=== PATIENT | female | born 1960 | race Caucasian/White ===

== ENCOUNTER 2023-08-24 20:21 | Inpatient (IN) | payer OTHER ==
[2023-08-24] MEDS ORDERED: FUROSEMIDE 20 MG/ 2ML VIAL ONE ×2 (21:29→22:33)
[2023-08-24 21:30] LABS: Absolute Basophils 0.1 K/uL (0-0.5); Absolute Eosinophils 0.1 K/uL (0-0.5); Absolute Lymphocytes (CBC) 2.5 K/uL (0.7-4.9); Absolute Monocytes 0.9 K/uL (0.1-1.3); Absolute Neutrophil 9.2 K/uL (1.8-8.0); Basophils % 0.6 % (0-1.3); Eosinophils % 0.8 % (0-4.4); Hematocrit 45.1 % (36.0-45.0); Hemoglobin 13.7 g/dL (12.0-15.0); Lymphocytes % 19.4 % (15.3-44.8); MCH 25.2 pg (27.0-35.0); MCHC 30.4 g/dL (32.0-36.0); MCV 83.1 fL (80-100); MPV 9.1 fL (7.6-11.3); Monocytes % 7.1 % (3.3-12.3); Neutrophils % 72.1 % (41.7-73.7); Nucleated RBC Absolute Count 0.1 (0-0); Nucleated Red Blood Cells % 0.6 % (0-0); Platelets 110 thou/uL (152-406); RBC Red Blood Cell Count 5.43 M/uL (3.86-4.86); Red Cell Distribution Width 21.2 % (12.1-15.2)
[2023-08-24 21:38] LABS: PT Prothrombin Time 12.4 SECONDS (9.5-12.5); Protime INR 1.13
[2023-08-24 21:58] LABS: Blood Morphology Comment NOT SEEN (NOT SEEN); Platelet Estimate DECR; White Blood Cell Scan OK (OK)
[2023-08-24 22:21] LABS: Albumin 3.6 g/dL (3.4-5.0); Albumin/Globulin Ratio 0.7 (1.1-1.8); Anion Gap 13.3 mEq/L (5.0-15.0); Bilirubin Direct 0.2 mg/dL (0-0.2); Bilirubin Indirect, Calculated 0.4 mg/dL (0.2-0.8); Bilirubin Total 0.6 mg/dL (0.2-1.0); Globulin 5.2 g/dL (2.3-3.5); Magnesium 2.8 mg/dL (1.6-2.4); Potassium 5.3 mEq/L (3.5-5.1); Protein, Total 8.8 g/dL (6.4-8.2); Troponin High Sensitivity 47.5 pg/mL (<58.9)
--- NOTE | 2023-08-24 22:39 | RAD REPORT ---
EXAM DESCRIPTION: US - Extrem Venous W Compress Yobani - 08/24/2023 10:13 pm CLINICAL HISTORY: SWELLING COMPARISON: No comparisons TECHNIQUE: Real-time sonographic evaluation of the lower extremity deep venous systems was performed using color Doppler, grayscale, and compression. FINDINGS: Bilateral lower extremities. Normal compressibility, flow augmentation, phasic flow and spontaneous flow is identified in both the left and right lower extremity deep venous systems. No intraluminal filling defects seen. Suboptimal visualization of many of the veins due to the degree of swelling and body habitus. IMPRESSION: No DVT in either lower extremity.
--- NOTE | 2023-08-24 22:46 | RAD REPORT ---
EXAM DESCRIPTION: RAD - Chest Single View - 08/24/2023 10:39 pm CLINICAL HISTORY: SOB COMPARISON: No comparisons FINDINGS: Lines: None. Lungs: Basilar airspace disease, right greater than left. Pleural: Bilateral pleural effusions which are small. Cardiac: Mild cardiomegaly. Mediastinum: Within normal limits. Bones: No acute fractures. Other: None IMPRESSION: Basilar airspace disease with small pleural effusions could reflect the combination of e skyler and/or pneumonia.
[2023-08-24 23:00] LABS: Blood O2 Saturation 12.7 % (92-98.5)
[2023-08-24 23:01] LABS: Arterial Blood Carboxyhemoglob 4.3 % (0-1.5); Blood Gas Oxyhemoglobin 11.9 % (94-97); Blood Gas RHB 14.7 %
[2023-08-24 23:29] LABS: Specific Gravity 1.025 (1.005-1.030); Sqamous Epithelial <5 /HPF (None Seen); Urine Bacteria None Seen /HPF (<20); Urine Bilirubin NEGATIVE (Negative); Urine Blood Negative (Negative); Urine Clarity Clear (Clear); Urine Color Yellow (Yellow); Urine Culture Reflex Order NOT NEEDED; Urine Glucose NEGATIVE (Negative); Urine Ketones NEGATIVE (Negative); Urine Micro Reflex YN NO BILL MICROSCOPIC; Urine Mucus Slight /HPF (None Seen); Urine Nitrite NEGATIVE (Negative); Urine Protein 1+ (Negative); Urine RBC <5 /HPF (None Seen); Urine Urobilinogen 1+ (Normal); Urine WBC <5 /HPF (<5); Urine pH 5.5 (5.0-7.0)
[2023-08-24] MEDS ORDERED: INSULIN REGULAR (HUMAN) 100 UNIT/ML ONE (23:40)
[2023-08-24] MEDS ORDERED: AZITHROMYCIN 500 MG INJ IVPB ONE (23:41)
[2023-08-24] MEDS ORDERED: NA CHLORIDE 0.9% 250 ML ONE (23:41)
[2023-08-24] MEDS ORDERED: SOD POLYSTYREN SUL 15 GM/60 ML UCUP ONE (23:41)
[2023-08-24] MEDS ORDERED: CEFTRIAXONE 1000 MG/VIAL ONE (23:41)
[2023-08-24] MEDS ORDERED: D10W 250 ML IV ONE (23:42)
[2023-08-24] MEDS ORDERED: IPRATROPIUM BROM 0.5MG/2.5ML ONE (23:52)
[2023-08-24] MEDS ORDERED: ALBUTEROL 2.5 MG/3 ML NEB SOL ONE (23:52)
--- NOTE | 2023-08-25 00:17 | EDPHYS ---
Physician Documentation [facility] Name: Catina Antony Age: 63 yrs Sex: Female : 1960 Arrival Date: 08/24/2023 Time: 20:21 Bed 19 Private MD: ED Physician Sanchez Desai HPI: 08/23 20:55 This 63 yrs old Female presents to ER via Wheelchair with complaints of Shortness Of cp Breath, pt states her body is retaining fluid. 20:55 The patient has shortness of breath at rest. Onset: The symptoms/episode began/occurred cp gradually. Duration: The symptoms are continuous, and are steadily getting worse. Associated signs and symptoms: Pertinent positives: edema, Pertinent negatives: chest pain, diaphoresis, fever. Severity of symptoms: in the emergency department the symptoms are unchanged despite home interventions. The patient has experienced similar episodes in the past, chronically. Historical: - Allergies: 20:39 No Known Allergies; jb4 - PMHx: 20:39 DM; Edema to JOYCE lower extremities; heart problem; jb4 - PSHx: 20:39 Right femur; jb4 - Immunization history:: Adult Immunizations up to date. - Social history:: Smoking status: Patient/guardian denies using tobacco, but has a distant history of tobacco abuse. ROS: 21:00 Constitutional: Negative for body aches, chills, fever, poor PO intake, cp 21:00 Eyes: Negative for injury, pain, redness, and discharge, cp 21:00 ENT: Negative for drainage from ear(s), ear pain, sore throat, difficulty swallowing, difficulty handling secretions, 21:00 Cardiovascular: Positive for edema, Negative for chest pain, 21:00 Respiratory: Positive for shortness of breath, at rest. 21:00 Abdomen/GI: Negative for abdominal pain, vomiting, diarrhea, constipation, 21:00 Neuro: Negative for altered mental status, dizziness, headache, syncope, weakness, 21:00 All other systems are negative, Exam: 21:05 Constitutional: The patient appears in no acute distress, alert, awake, cp non-diaphoretic, non-toxic, well developed, well nourished, obese, uncomfortable, 21:05 Head/Face: Normocephalic, atraumatic. cp 21:05 Eyes: Periorbital structures: appear normal, Conjunctiva: normal, no exudate, no injection, Sclera: no appreciated abnormality, Lids and lashes: appear normal, bilaterally, 21:05 ENT: External ear(s): are unremarkable, Nose: is normal, Mouth: Lips: moist, Oral mucosa: pink and intact, moist, Posterior pharynx: Airway: no evidence of obstruction, patent, 21:05 Neck: ROM/movement: is normal, is supple, without pain, no range of motions limitations, no meningismus, no nuchal rigidity, 21:05 Chest/axilla: Inspection: normal, 21:05 Cardiovascular: Rate: tachycardic, Rhythm: regular, Edema: pedal edema, that is marked, ankle edema, that is marked, JVD: is not appreciated, 21:05 Respiratory: mild respiratory distress is noted, Respirations: shallow respirations, that is moderate, Breath sounds: decreased breath sounds, that are moderate, throughout, stridor, is not appreciated, wheezing: is not appreciated, 21:05 Abdomen/GI: Inspection: obese Palpation: abdomen is soft and non-tender, in all quadrants, 21:05 Back: pain, is absent, ROM is normal, 21:05 Skin: mild diffuse erythema of lower extremities. 21:05 Neuro: Orientation: to person, place \T\ time. Mentation: is normal, Motor: moves all fours, no focal deficits, Sensation: no obvious gross deficits, 22:17 ECG was reviewed by the Attending Physician. cp Vital Signs: 20:35 BP 128 / 58; Pulse 101; Resp 24; Temp 97.8; Pulse Ox 76% on R/A; Weight 104.42 kg (M); jb4 Height 5 ft. 4 in. ; 21:39 BP 94 / 57; Pulse 76; Pulse Ox 100% on bipap; tm6 22:16 BP 131 / 73; Pulse 94; Resp 25; Pulse Ox 100% on bipap; tm6 23:48 BP 134 / 57; Pulse 92; Resp 17; Pulse Ox 100% on bipap; Pain 0/10; tm6 03 01:49 BP 113 / 55; Pulse 93; Pulse Ox 95% on 3 lpm NC; Pain 0/10; tm6 08/23 20:35 Body Mass Index 39.51 (104.42 kg, 162.56 cm) jb4 23:48 Pain Scale: Adult tm6 08/24 01:49 Pain Scale: Adult tm6 MDM: 08/23 20:43 Patient medically screened. 21:00 Differential diagnosis: CHF exacerbation, Chronic Obstructive Pulmonary Disease cp Myocardial Infarction pneumonia, pulmonary edema, Pulmonary Embolism Sepsis Unstable Angina. 08/24 00:30 Data reviewed: vital signs, nurses notes, lab test result(s), EKG, radiologic studies, cp plain films, ultrasound, and as a result, I will admit patient. 00:30 I considered the following discharge prescriptions or medication management in the emergency department Medications were administered in the Emergency Department. See MAR. Independent interpretation of the following test(s) in the Emergency Department EKG: See my EKG interpretation above. Care significantly affected by the following chronic conditions: Congestive Heart Failure, Obesity. Counseling: I had a detailed discussion with the patient and/or guardian regarding the historical points, exam findings, and any diagnostic results supporting the discharge/admit diagnosis, lab results, radiology results, the need for further work-up and treatment in the hospital. Response to treatment: the patient's symptoms have markedly improved after treatment. 08/23 20:47 Order name: Basic Metabolic Panel; Complete Time: 22:21 08/23 22:22 Interpretation: Normal except: NA 135; K 5.3; GLUC 174; BUN 41; CRE 1.38; GFR 43. 08/23 20:47 Order name: CBC with Diff; Complete Time: 22:03 08/23 22:03 Interpretation: Normal except: WBC 12.70; RBC 5.43; HCT 45.1; MCH 25.2; MCHC 30.4; PLT cp 110; RDW 21.2; NEUT A 9.2. 08/23 20:47 Order name: LFT's; Complete Time: 22:21 / 22:22 Interpretation: Normal except: ALK 131; TP 8.8; GLOB 5.2; A/G 0.7. 08/23 20:47 Order name: Magnesium; Complete Time: 22:21 08/23 20:47 Order name: NT PRO-BNP; Complete Time: 22:21 08/23 20:47 Order name: PT-INR; Complete Time: 22:03 08/23 20:47 Order name: Troponin HS; Complete Time: 22:21 08/23 20:47 Order name: ABG; Complete Time: 23:39 cp 08/23 20:47 Order name: Lactate w/ 2H reflex if indic.; Complete Time: 22:03 cp 08/23 20:47 Order name: Blood Culture Adult (2) cp 08/23 20:47 Order name: Urinalysis W/Microscopic; Complete Time: 23:39 cp 08/23 20:47 Order name: Influenza Screen (a \T\ B); Complete Time: 22:03 cp 08/23 20:47 Order name: COVID-19 SARS RT PCR; Complete Time: 22:03 cp 08/23 21:37 Order name: CBC Smear Scan; Complete Time: 22:03 EDMS 08/24 01:36 Order name: Basic Metabolic Panel EDMS 08/24 01:36 Order name: Basic Metabolic Panel EDMS 08/24 01:36 Order name: CBC with Automated Diff EDMS 08/24 01:36 Order name: CBC with Automated Diff EDMS 08/24 01:36 Order name: Lipid Profile EDMS 08/24 01:36 Order name: Lipid Profile EDMS 08/24 01:36 Order name: Magnesium EDMS 08/24 01:36 Order name: Magnesium EDMS / 01:36 Order name: Phosphorus EDMS / 01:36 Order name: Phosphorus EDMS / 01:36 Order name: Troponin High Sensitivity EDMS / 01:36 Order name: Troponin High Sensitivity EDMS / 01:36 Order name: Troponin High Sensitivity EDMS / 01:36 Order name: Troponin High Sensitivity EDMS / 01:36 Order name: Troponin High Sensitivity EDMS 08/24 01:36 Order name: Troponin High Sensitivity EDMS / 01:36 Order name: Troponin High Sensitivity EDMS 08/24 01:36 Order name: Troponin High Sensitivity EDMS / 01:53 Order name: Lactate Sepsis 2 HR Follow-up EDMS 08/24 02:27 Order name: Glucose, Ancillary Testing EDMS 08/23 20:47 Order name: XRAY Chest (1 view); Complete Time: 22:57 cp 08/23 20:47 Order name: US Extremity Venous W Compression Joyce; Complete Time: 22:57 cp 08/24 01:36 Order name: Echo with Doppler EDMS 03/03 01:36 Order name: Echo with Doppler [facility] 08/23 20:47 Order name: EKG; Complete Time: 20:48 cp 08/24 01:36 Order name: Physical Therapy Consult [facility] 08/23 20:47 Order name: Cardiac monitoring; Complete Time: 22:16 cp 08/23 20:47 Order name: EKG - Nurse/Tech; Complete Time: 22:16 cp 08/23 20:47 Order name: IV Saline Lock; Complete Time: 21:19 cp 08/23 20:47 Order name: Labs collected and sent; Complete Time: 21:19 cp 08/23 20:47 Order name: O2 Per Protocol; Complete Time: 21:27 cp 08/23 20:47 Order name: O2 Sat Monitoring; Complete Time: 21:27 cp EC/02 22:17 Rate is 90 beats/min. Rhythm is regular. IL interval is normal. QRS interval is normal. cp QT interval is normal. T waves are Inverted in lead aVR. Interpreted by me. Reviewed by me. Administered Medications: 22:23 Not Given (Physician Discretion): [id number] mg IVP once; give over 2 minutes 23:02 Drug: Furosemide IVP 40 mg IVP once; give over 2 minutes Route: IVP; Site: left 6 antecubital; 23:53 Drug: D10 in Water IVP 250 ml IVP once Route: IVP; Site: left antecubital; tm6 23:53 Drug: Insulin Regular Human IVP 10 units IVP once {Co-Signature: pf1 (Shayla Hamilton tm6 RN).} Route: IVP; Site: left antecubital; 08/24 00:22 Drug: Kayexalate PO 30 grams PO once Route: PO; tm6 00:22 Drug: Rocephin IV 1 grams IV at calculated rate once; Given slow IV push per pharmacy tm6 instructions Route: IV; Rate: calculated rate; Site: left antecubital; 00:22 Drug: Zithromax IVPB 500 mg IVPB once over 1 hrs; mix in 250 mL NS Route: IVPB; Infused tm6 Over: 1 hrs; Site: left antecubital; 01:08 Drug: DuoNeb Nebulize (2.5 mg - 0.5 mg) 3 ml Nebulizer once Route: Nebulizer; tm6 Disposition Summary: 08/25/23 00:16 Hospitalization Ordered Notes: Hospitalization Status: Inpatient Admission cp Provider: Sylvester Duffy cp Location: Telemetry/MedSurg (Inpatient) cp Condition: Stable cp Problem: new cp Symptoms: have improved cp Bed/Room Type: Standard cp Room Assignment: 218(08/25/23 01:35) cg Diagnosis - Acute respiratory failure with hypoxia cp - Unspecified combined systolic (congestive) and diastolic (congestive) heart failure cp Forms: - Medication Reconciliation Form cp - SBAR form cp - Leadership Thank You Letter cp Addendum: 08/27/2023 07:57 I was immediately available for consultation during this patient's visit. I did not e c2 personally see the patient or discuss the patient with the MIKIE. . Signatures: Dispatcher [employer] EDMS Reza Jordan PA PA cp Garcia, Cindy, MAYCO RN cg Kyle Santacruz RN RN jb4 Sanchez Desai MD MD ec2 Nubia Blackburn RN RN tm6 Shayla Hamilton RN pf1 Corrections: (The following items were deleted from the chart) 08/24 01:35 00:16 cp cg
--- NOTE | 2023-08-25 00:17 | ER ---
Nurse's Notes [facility] Name: Catina Antony Age: 63 yrs Sex: Female : 1960 Arrival Date: 08/24/2023 Time: 20:21 Bed 19 Private MD: Diagnosis: Acute respiratory failure with hypoxia;Unspecified combined systolic (congestive) and diastolic (congestive) heart failure Presentation: 08/23 20:35 Chief complaint: Patient states: I started swelling 3 weeks ago and started having jb4 shortness for 1 week. I feel like I have been stuck in my chair. Pt noted to be 76% on RA. placed on 6L NC. Coronavirus screen: At this time, the client does not indicate any symptoms associated with coronavirus-19. Ebola Screen: No symptoms or risks identified at this time. Initial Sepsis Screen: Does the patient meet any 2 criteria? No. Patient's initial sepsis screen is negative. Does the patient have a suspected source of infection? No. Patient's initial sepsis screen is negative. Risk Assessment: Do you want to hurt yourself or someone else? Patient reports no desire to harm self or others. Onset of symptoms was August 03, 2023. Transition of care: patient was not received from another setting of care. 20:35 Method Of Arrival: Wheelchair jb4 20:35 Acuity: ANA ROSA 2 jb4 Triage Assessment: 08/24 00:00 General: Appears distressed. Respiratory: Reports shortness of breath at rest Onset: tm6 The symptoms/episode began/occurred at an unknown time. the patient has severe shortness of breath. Historical: - Allergies: 08/23 20:39 No Known Allergies; jb4 - PMHx: 20:39 DM; Edema to JOYCE lower extremities; heart problem; jb4 - PSHx: 20:39 Right femur; jb4 - Immunization history:: Adult Immunizations up to date. - Social history:: Smoking status: Patient/guardian denies using tobacco, but has a distant history of tobacco abuse. Screenin:41 [facility] ED Fall Risk Assessment (Adult) History of falling in the last 3 months, tm6 including since admission No falls in past 3 months (0 pts) Confusion or Disorientation No (0 pts) Intoxicated or Sedated No (0 pts) Impaired Gait Yes (1 pt) Mobility Assist Device Used Yes (1 pt) Altered Elimination No (0 pt) Score/Fall Risk Level 0 - 2 = Low Risk Oriented to surroundings, Maintained a safe environment. Abuse screen: Denies threats or abuse. Denies injuries from another. Nutritional screening: No deficits noted. Tuberculosis screening: No symptoms or risk factors identified. Assessment: 21:39 General: Appears distressed, Behavior is anxious. tm6 21:39 Pain: Denies pain. Neuro: Level of Consciousness is awake, alert, obeys commands, tm6 Oriented to person, place, time, situation. Cardiovascular: +3 edema in bilateral lower extremeties. Respiratory: Airway is patent Respiratory effort is labored, Breath sounds are diminished. GI: Abdomen is round non-distended. : No signs and/or symptoms were reported regarding the genitourinary system. EENT: No signs and/or symptoms were reported regarding the EENT system. Derm: No signs and/or symptoms reported regarding the dermatologic system. Musculoskeletal: No signs and/or symptoms reported regarding the musculoskeletal system. 22:17 Cardiovascular: Rhythm is sinus rhythm. tm6 22:17 Reassessment: No changes from previously documented assessment. tm6 23:49 Reassessment: Patient and/or family updated on plan of care and expected duration. Pain tm6 level reassessed. General: Behavior is calm, cooperative. 08/24 01:55 Reassessment: report attempted. tm6 Vital Signs: 08/23 20:35 BP 128 / 58; Pulse 101; Resp 24; Temp 97.8; Pulse Ox 76% on R/A; Weight 104.42 kg (M); jb4 Height 5 ft. 4 in. ; 21:39 BP 94 / 57; Pulse 76; Pulse Ox 100% on bipap; tm6 22:16 BP 131 / 73; Pulse 94; Resp 25; Pulse Ox 100% on bipap; tm6 23:48 BP 134 / 57; Pulse 92; Resp 17; Pulse Ox 100% on bipap; Pain 0/10; tm6 08/24 01:49 BP 113 / 55; Pulse 93; Pulse Ox 95% on 3 lpm NC; Pain 0/10; tm6 08/23 20:35 Body Mass Index 39.51 (104.42 kg, 162.56 cm) jb4 23:48 Pain Scale: Adult tm6 08/24 01:49 Pain Scale: Adult tm6 ED Course: 08/23 20:27 Patient arrived in ED. gm2 20:32 Reza Jordan PA is PHCP. cp 20:32 Sanchez Desai MD is Attending Physician. cp 20:39 Triage completed. jb4 20:39 Arm band placed on right wrist. jb4 20:43 Nubia Blackburn, AMYCO is Primary Nurse. tm6 21:19 Inserted saline lock: 24 gauge in left antecubital area, using aseptic technique. Blood mb9 collected. 21:27 Influenza Screen (a \T\ B) Sent. tm6 21:27 COVID-19 SARS RT PCR Sent. tm6 21:27 CBC with Diff Sent. tm6 21:27 Basic Metabolic Panel Sent. tm6 21:27 Magnesium Sent. tm6 21:27 LFT's Sent. tm6 21:27 NT PRO-BNP Sent. tm6 21:27 PT-INR Sent. tm6 21:27 Troponin HS Sent. tm6 21:30 Lactate w/ 2H reflex if indic. Sent. tm6 21:41 Patient has correct armband on for positive identification. Bed in low position. Call tm6 light in reach. Side rails up X2. Provided Education on: plan of care. Client placed on continuous cardiac and pulse oximetry monitoring. NIBP monitoring applied. frame cleaner on. Pulse ox on. NIBP on. Door closed. Noise minimized. Warm blanket given. 21:41 O2 via bipap. tm6 22:00 Notified Nurse Practitioner and/or Physician [employer] of a critical lab result(s), me1 lactate 2.5. 22:14 US Extremity Venous W Compression Joyce In Process Unspecified. EDMS 22:41 XRAY Chest (1 view) In Process Unspecified. EDMS 23:02 Frausto cath inserted, using sterile technique, 16 Fr., by me, returned clear yellow tm6 urine. Patient tolerated well. 08/24 00:14 Sylvester Duffy is Hospitalizing Provider. cp 01:49 No provider procedures requiring assistance completed. Patient admitted, IV remains in tm6 place. Administered Medications: 08/23 22:23 Not Given (Physician Discretion): [id number] mg IVP once; give over 2 minutes cp 23:02 Drug: Furosemide IVP 40 mg IVP once; give over 2 minutes Route: IVP; Site: left tm6 antecubital; 23:53 Drug: D10 in Water IVP 250 ml IVP once Route: IVP; Site: left antecubital; tm6 23:53 Drug: Insulin Regular Human IVP 10 units IVP once {Co-Signature: pf1 (Shayla Hamilton tm6 RN).} Route: IVP; Site: left antecubital; 08/24 00:22 Drug: Kayexalate PO 30 grams PO once Route: PO; tm6 00:22 Drug: Rocephin IV 1 grams IV at calculated rate once; Given slow IV push per pharmacy tm6 instructions Route: IV; Rate: calculated rate; Site: left antecubital; 00:22 Drug: Zithromax IVPB 500 mg IVPB once over 1 hrs; mix in 250 mL NS Route: IVPB; Infused tm6 Over: 1 hrs; Site: left antecubital; 01:08 Drug: DuoNeb Nebulize (2.5 mg - 0.5 mg) 3 ml Nebulizer once Route: Nebulizer; tm6 Medication: 08/23 21:41 VIS not applicable for this client. tm6 Outcome: 08/24 00:16 Decision to Hospitalize by Provider. cp 01:50 Admitted to Med/surg accompanied by nurse, room 218, with oxygen, with chart, tm6 01:51 Condition: stable tm6 01:51 Instructed on the need for admit, Demonstrated understanding of instructions, 02:07 Admitted to Med/surg Report called to [place] MAO tm6 02:37 Patient left the ED. tm6 Signatures: Dispatcher [employer] EDIN Reza Jordan PA PA cp Bryson, James, RN RN jb4 Katie Mcclure, RN RN mb9 Selena Galindo RN RN 1 Destini Suárez gm2 Nubia Blackburn RN RN tm6 Shayla Hamilton RN pf1
[2023-08-25] MEDS ORDERED: ACETAMINOPHEN 500 MG TAB PO PRN (01:29)
[2023-08-25] MEDS ORDERED: ONDANSETRON 4 MG/2 ML VIAL IV PRN (01:29)
--- NOTE | 2023-08-25 01:41 | P.HP ---
Certification for Inpatient Patient admitted to: Inpatient With expected LOS: >2 Midnights Practitioner: I am a practitioner with admitting privileges, knowledge of patient current condition, hospital course, and medical plan of care. Services: Services provided to patient in accordance with Admission requirements found in Title 42 Section 412.3 of the Code of Federal Regulations Patient History Date of Service: 08/25/23 Reason for admission: Shortness of breath History of Present Illness: 63-year-old woman with a history of diabetes mellitus on metformin, recent right hip fracture with decreased mobility presented to the emergency department with a complaint of progressive shortness of breath and bilateral lower extremity swelling. Patient mentioned her PCP put her on Lasix after she was discharged from skilled rehab which she underwent postop for the hip fracture. She states that her Lasix dose was tapered down from 40 mg to 20 mg and her PCP recently instructed her to increase the dose to 40 mg due to progressive lower extremity swelling. Chest x-ray done in the emergency department shows bilateral pulmonary edema, patient's legs are significantly swollen up to the point she developed blisters on sores from the edema. Blood work shows hyperkalemia with potassium of 5.3. Of note patient has been taking potassium supplementation with her Lasix therapy. EKG does not show any acute ischemic changes, initial troponin is negative. Patient is hospitalized for further management. - Past Medical/Surgical History -: Type 2 diabetes -: Heart valvular disease -: Recent right femoral fracture status post nailing/pins -: Gallbladder surgery - Family History Mother -: Heart disease, Diabetes Father -: Heart disease, Diabetes - Social History Smoking Status: Former smoker Alcohol use: Yes Place of Residence: Home Review of Systems Other: Patient denied any chest pain, denied any palpitation. She denied any fever. She endorsed orthopnea. Except as documented, all other systems reviewed and negative. Physical Examination - Vital Signs Pulse: 95 Pulse Ox (%): 100 - Physical Exam General: Alert, Oriented x3, Mild distress HEENT: PERRLA, Mucous membr. moist/pink, Sclerae nonicteric Neck: Supple, JVD not distended Respiratory: Normal air movement, Crackles/rales (Bibasilar crackles), Other (No rhonchi or wheezes) Cardiovascular: Regular rate/rhythm, Normal S1 S2, Edema (3+ bilateral lower extremity edema) Capillary refill: <2 Seconds Gastrointestinal: Normal bowel sounds, Soft and benign, Non-distended, No tenderness Musculoskeletal: Swelling (Bilateral legs) Integumentary: Erythema (Bilateral legs) Neurological: Normal speech, Normal strength at 5/5 x4 extr Lymphatics: No axilla or inguinal lymphadenopathy - Studies Laboratory Data (last 24 hrs) 08/24/23 08/24/23 08/24/23 21:15 21:15 21:15 WBC 12.70 H Hgb 13.7 Hct 45.1 H Plt Count 110 L PT 12.4 INR 1.13 Sodium 135 L Potassium 5.3 H BUN 41 H Creatinine 1.38 H Glucose 174 H Magnesium 2.8 H Total Bilirubin 0.6 AST 16 ALT 13 Alkaline Phosphatase 131 H Microbiology Data (last 24 hrs): 08/24/23 20:53 Nasopharnyx Influenza Type A Antigen Screen - Final 08/24/23 20:53 Nasopharnyx Influenza Type B Antigen Screen - Final Assessment and Plan - Problems (Diagnosis) (1) Acute CHF Current Visit: Yes Status: Acute (2) Acute respiratory failure with hypoxia Current Visit: Yes Status: Acute (3) Type 2 diabetes mellitus Current Visit: Yes Status: Acute (4) Hyperkalemia Current Visit: Yes Status: Acute (5) JILLIAN (acute kidney injury) Current Visit: Yes Status: Acute - Plan Acute CHF/acute respiratory failure with hypoxia Patient noted to be hypoxic on room air on arrival. Hypoxia likely secondary to pulmonary edema Patient reported valvular disease, unknown EF Admit to the medical floor Aggressive diuresis with IV Lasix Monitor intake and output Monitor and correct electrolytes as needed Echocardiogram Trend troponin to rule out ACS. Hyperkalemia Likely related to potassium supplementation Patient given oral Kayexalate in the ED Monitor electrolytes. IV Lasix should also correct the hyperkalemia. JILLIAN Cardiorenal syndrome versus dehydration Continue IV Lasix and monitor renal function Nephrology consult. Type 2 diabetes Hold metformin Insulin sliding scale for glucose management.. DVT prophylaxis: Lovenox. - Advance Directives Does patient have a Living Will: No Does patient have a Durable POA for Healthcare: No
[2023-08-25 03:06] VITALS: BMI 41.0
[2023-08-25 07:28] LABS: Phosphorus 4.3 mg/dL (2.5-4.9); Troponin High Sensitivity 42.1 pg/mL (<58.9)
[2023-08-25] MEDS: INSULIN REGULAR (HUMAN) 100 UNIT/ML SQ SCH (07:30)
[2023-08-25 07:31] LABS: Magnesium 2.3 mg/dL (1.6-2.4)
[2023-08-25] MEDS: FUROSEMIDE 40 MG/4 ML VIAL IV SCH (08:28)
[2023-08-25] MEDS: ENOXAPARIN 40 MG/0.4 ML SQ SCH (08:29)
[2023-08-25] MEDS: ASPIRIN EC 81 MG TAB PO SCH (08:29)
[2023-08-25] MEDS ORDERED: CLOPIDOGREL 75 MG TABLET PO SCH (09:00)
[2023-08-25 10:06] LABS: Anion Gap 9.6 mEq/L (5.0-15.0); Potassium 4.6 mEq/L (3.5-5.1)
--- NOTE | 2023-08-25 14:17 | P.PN ---
Date of Service: 08/25/23 Subjective: Dyspnea has improved Still needing nasal cannula oxygen Significant lower extremity edema present ROS: 10 point ROS as noted above, otherwise negative Physical exam GEN: Alert, oriented, NAD HEENT: Normal conjunctiva, sclera anicteric CV: Regular rate and rhythm, 3+ pitting edema bilateral lower extremities Pulm: Nonlabored respirations on nasal cannula ABD: Soft, nontender, nondistended MSK: No joint tenderness Integumentary: No rashes Neuro: Normal speech, normal affect Vitals reviewed Problem List Acute on chronic diastolic congestive heart failure Acute hypoxic respiratory failure secondary to CHF exacerbation JILLIAN with hyperkalemia Diabetes mellitus type 2 Plan Acute on chronic diastolic congestive heart failure Acute hypoxic respiratory failure secondary to CHF exacerbation Last echocardiogram 06/20/2023 with left ventricular ejection fraction greater than 65%, mild to moderate aortic valve stenosis Dilated left atrium Was on Lasix 20mg daily at home, increased to 40 mg for the last week without improvement Continue IV diuresis, wean O2 Cardiology consult in place JILLIAN with hyperkalemia Suspect CRS, improving with diuresis Continue to monitor chemistry daily Consider nephrology consult if there is worsening Diabetes mellitus type 2 ACHS Accu-Chek, sliding scale insulin VTE: Lovenox Code: Full Dispo: 48-72 hours Time Spent Managing Pts Care (In Minutes): 35
[2023-08-25] MEDS: ATORVASTATIN 10 MG TAB PO SCH (20:58)
[2023-08-26 04:10] LABS: Absolute Basophils 0.1 K/uL (0-0.5); Absolute Eosinophils 0.2 K/uL (0-0.5); Absolute Lymphocytes (CBC) 2.1 K/uL (0.7-4.9); Absolute Neutrophil 7.2 K/uL (1.8-8.0); Basophils % 0.6 % (0-1.3); Eosinophils % 1.4 % (0-4.4); Hematocrit 34.8 % (36.0-45.0); Hemoglobin 10.9 g/dL (12.0-15.0); Lymphocytes % 20.1 % (15.3-44.8); MCH 25.7 pg (27.0-35.0); MCHC 31.4 g/dL (32.0-36.0); MCV 81.7 fL (80-100); MPV 9.2 fL (7.6-11.3); Monocytes % 9.5 % (3.3-12.3); Neutrophils % 68.4 % (41.7-73.7); Nucleated Red Blood Cells % 0.1 % (0-0); Platelets 94 thou/uL (152-406); RBC Red Blood Cell Count 4.26 M/uL (3.86-4.86)
[2023-08-26 04:21] LABS: Red Cell Distribution Width 21.7 % (12.1-15.2)
[2023-08-26 04:41] LABS: Anion Gap 9.3 mEq/L (5.0-15.0); Magnesium 2.1 mg/dL (1.6-2.4); Phosphorus 4.6 mg/dL (2.5-4.9); Potassium 4.3 mEq/L (3.5-5.1)
--- NOTE | 2023-08-26 09:38 | P.PN ---
Date of Service: 08/26/23 Subjective: Slowly improving shortness of breath Still needing nasal cannula oxygen periodically Significant lower extremity edema present-slowly improving ROS: 10 point ROS as noted above, otherwise negative Physical exam GEN: Alert, oriented, NAD HEENT: Normal conjunctiva, sclera anicteric CV: Regular rate and rhythm, 3+ pitting edema bilateral lower extremities Pulm: Nonlabored respirations on nasal cannula ABD: Soft, nontender, nondistended MSK: No joint tenderness Integumentary: No rashes Neuro: Normal speech, normal affect Vitals reviewed Problem List Acute on chronic diastolic congestive heart failure Acute hypoxic respiratory failure secondary to CHF exacerbation JILLIAN with hyperkalemia Diabetes mellitus type 2 Plan Acute on chronic diastolic congestive heart failure Acute hypoxic respiratory failure secondary to CHF exacerbation Last echocardiogram 06/20/2023 with left ventricular ejection fraction greater than 65%, mild to moderate aortic valve stenosis Dilated left atrium Was on Lasix 20mg daily at home, increased to 40 mg for the last week without improvement Continue IV diuresis with lasix 40mg iv bid, wean O2 Slow improvement in lower extremity edema, dyspnea Still with significant lower extremity edema 3/4 Echocardiogram ordered, cardiology following JILLIAN with hyperkalemia Suspect CRS, improving with diuresis Continue to monitor chemistry daily Consider nephrology consult if there is worsening Diabetes mellitus type 2 ACHS Accu-Chek, sliding scale insulin VTE: Lovenox Code: Full Dispo: 48-72 hours Time Spent Managing Pts Care (In Minutes): 35
--- NOTE | 2023-08-26 13:50 | ECHO ---
HEIGHT: 5 ft 3 in WEIGHT: 225 lb 4.8 oz DATE OF STUDY: 08/26/[address]: Sylvester Duffy MD 2-DIMENSIONAL: YES M.MODE: YES DOPPLER: YES COLOR FLOW: YES TDS: NO PORTABLE: YES DEFINITY: NO BUBBLE STUDY: NO DIAGNOSIS: ACUTE CONGESTIVE HEART FAILURE CARDIAC HISTORY: CATHERIZATION: SURGERY: PROSTHETIC VALVE: PACEMAKER: MEASUREMENTS (cm) DIASTOLIC (NORMALS) SYSTOLIC (NORMALS) IVSd 1.1 (0.6-1.2) LA Diam 3.9 (1.9-4.0) LVEF 63% LVIDd 4.3 (3.5-5.7) LVIDs 2.8 (2.0-3.5) %FS 34% LVPWd 1.2 (0.6-1.2) Ao Diam 2.8 (2.0-3.7) 2 DIMENSIONAL ASSESSMENT: RIGHT ATRIUM: NORMAL LEFT ATRIUM: ENLARGED RIGHT VENTRICLE: NORMAL LEFT VENTRICLE: NORMAL TRICUSPID VALVE: NORMAL MITRAL VALVE: MITRAL ANNULAR CALCIFICATION WITH MITRAL STENOSIS & MITRAL REGURGITATION PULMONIC VALVE: NORMAL AORTIC VALVE: NORMAL PERICARDIAL EFFUSION: NONE AORTIC ROOT: NORMAL LEFT VENTRICULAR WALL MOTION: NORMAL DOPPLER/COLOR FLOW: SEE BELOW. COMMENTS: 1. NORMAL LEFT VENTRICULAR EJECTION FRACTION 60-65% WITH NORMAL WALL MOTION. 2. LEFT ATRIAL ENLARGEMENT. 3. SEVERE MITRAL ANNULAR CALCIFICATION WITH MITRAL STENOSIS AND MITRAL REGURGITATION. 4. MODERATE DIASTOLIC DYSFUNCTION. TECHNOLOGIST: NORY BRASHER
--- NOTE | 2023-08-26 19:27 | CON ---
Date of Consultation: 08/26/2023 Reason For Consultation: CHF exacerbation. History Of Present Illness: This is a 63-year-old female with past medical history of diabetes, mitr al valve disorder, congestive heart failure, presented with bilateral lower extremity edema, shortnes s of breath and orthopnea. Denies having any chest pain. No nausea, vomiting, or diarrhea. She was on Lasix 40 mg. This was tapered down to 20 mg daily. Started building fluids gradually and presen gely to the emergency room with heart failure symptoms. Past Medical History: As outlined above in HPI. Medications: Refer reconciliation sheet for detailed list. Allergies: NO KNOWN DRUG ALLERGIES. Family History: No premature coronary artery disease or cancer. Social History: She is an ex-smoker. Does not drink, use any drugs. Review of Systems: All systems reviewed and are negative except mentioned in HPI. Physical Examination: Vital Signs: Reviewed. Head and Neck: Pupils are equal, reactive to light. Intact eye movements. No significant neuropath y. Positive JVD. Lungs: Crackles in both bases. No accessory muscle use or muscle retraction. Heart: Regular with apical systolic murmur. Abdomen: Soft, nontender. Bowel sounds positive. No organomegaly. No masses or hernia. No rigidi ty or rebound. Extremities: 3+ edema bilaterally. No clubbing, cyanosis. Intact pulses. Skin: No rashes. Neurologic: Alert, awake, oriented x3. No acute focal deficits appreciated. Lymph Nodes: No cervical or axillary lymphadenopathy. Investigations: Creatinine 1.16, down from 1.38. Assessment And Recommendation: 1.Acute on chronic congestive heart failure exacerbation, diastolic dysfunction, per echo EF is norm al. Continue IV diuretics. Carefully monitor BUN, creatinine, electrolytes on daily basis. 2.Moderate mitral valve stenosis with mild MR. Once the patient is euvolemic, recommend beta blocke r to get the heart rate to the low 50s and evaluate her symptoms. If symptoms continue to get worse, then surgical intervention for valve replacement will be recommended and will follow this issue as a n outpatient. 3.Dyslipidemia. Continue statin. SR/MODL Voice ID: [id number] Report ID: [id number]
[2023-08-27] MEDS: ACETAMINOPHEN 500 MG TAB PO PRN (00:44)
[2023-08-27 06:58] LABS: Hematocrit 35.3 % (36.0-45.0); Hemoglobin 11.1 g/dL (12.0-15.0); MCH 25.5 pg (27.0-35.0); MCHC 31.5 g/dL (32.0-36.0); MCV 81.1 fL (80-100); MPV 9.3 fL (7.6-11.3); Platelets 96 thou/uL (152-406); RBC Red Blood Cell Count 4.35 M/uL (3.86-4.86); Red Cell Distribution Width 21.6 % (12.1-15.2)
[2023-08-27 07:22] LABS: Anion Gap 7.1 mEq/L (5.0-15.0); Potassium 4.1 mEq/L (3.5-5.1)
[2023-08-27] MEDS: ENOXAPARIN 40 MG/0.4 ML SQ SCH (07:38)
[2023-08-27 09:12] LABS: Anisocytosis 1+; Blood Morphology Comment NOTED (NOT SEEN); Platelet Estimate DECR; White Blood Cell Scan OK (OK)
--- NOTE | 2023-08-27 13:57 | P.PN ---
Date of Service: 08/27/23 Subjective: Lower extremity edema improving ROS: 10 point ROS as noted above, otherwise negative Physical exam GEN: AAOx3, NAD HEENT: Normal conjunctiva, sclera anicteric CV: RRR, 3+ pitting edema bilateral lower extremities, S1 S2 present Pulm: Nonlabored respirations on nasal cannula, bilaterally clear breath sounds ABD: Soft and benign on palpation, NT/ND, positive bowel sounds MSK: No joint tenderness, 2+ peripheral pulses Integumentary: No rashes Neuro: Normal speech, normal affect Vitals reviewed Problem List Acute on chronic diastolic congestive heart failure Acute hypoxic respiratory failure secondary to CHF exacerbation JILLIAN with hyperkalemia Diabetes mellitus type 2 Plan Acute on chronic diastolic congestive heart failure Acute hypoxic respiratory failure secondary to CHF exacerbation Last echocardiogram 06/20/2023 with left ventricular ejection fraction greater than 65%, mild to moderate aortic valve stenosis Dilated left atrium Was on Lasix 20mg daily at home, increased to 40 mg for the last week without improvement requires continued IV diuresis with lasix 40mg iv bid, wean O2 Appropriate UOP, Slow improvement in lower extremity edema, dyspnea Still with significant lower extremity edema 3/4 Echocardiogram Showing severe MAC with regurg and stenosis JILLIAN with hyperkalemia Suspect CRS, improving with diuresis K 4.1, Continue to monitor chemistry daily Diabetes mellitus type 2 ACHS Accu-Check, sliding scale insulin VTE: Lovenox Code: Full Dispo: 48-72 hours <Diana Levin - Last Filed: 08/27/23 13:57> Patient seen and examined, plan of care discussed with Ms. Levin. Bilateral lower extremity edema is slowly improving Echocardiogram is demonstrating mitral stenosis. Patient with symptomatic mitral stenosis. Continue aggressive diuresis. Cardiology Dr. Hernandez is following. Keep lower extremities elevated. Monitor renal function closely. <rebecca khan - Last Filed: 08/27/23 16:47>
--- NOTE | 2023-08-27 17:13 | EKG ---
Test Date: 2023-08-24 Test Time: 22:11:38 Cyber Operator: MEASUREMENT RESULTS: Intervals: Rate: 90 RI: 152 QRSD: 76 QT: 352 QTc: 430 [place]: P: 69 RI: 152 QRS: 73 T: 7 INTERPRETIVE STATEMENTS: Normal sinus rhythm Septal infarct, age undetermined Abnormal ECG No previous ECG available for comparison Electronically Signed On 08-27-23 17:05:14 PROGRAM MEDICAL DIRECTOR by Marcos Hernandez
--- NOTE | 2023-08-27 18:24 | PN ---
Date of Progress Note: 08/27/2023 Subjective: Seen by bedside. She is doing significantly better. Still has significant lower extrem ity edema and shortness of breath on exertion, improved comparing to yesterday. Review of Systems: Positive for lower extremity edema, shortness of breath on exertion, orthopnea. No nausea, vomiting, diarrhea. No chest pain. All other systems reviewed are negative. Physical Examination: Vital Signs: Reviewed. Head and Neck: Pupils are equal, reactive to light. Intact eye movements. Positive JVD. No cervic al lymphadenopathy. Neck is supple. Thyroid is not enlarged. Lungs: Decreased breathing sounds. No accessory muscle use or muscle retraction. Heart: Regular rate and rhythm. No extra sounds. Abdomen: Soft, nontender. Bowel sounds positive. No organomegaly. No masses or hernia. No rigidi ty or rebound. Extremities: No clubbing or cyanosis. 3+ edema bilaterally. Neurologic: Alert, awake, oriented x3. No acute focal deficits appreciated. Investigations: BUN 33, creatinine 1.09, and hemoglobin is 11.1. Assessment/recommendation: 1.Acute on chronic diastolic heart failure exacerbation. Continue IV diuretics. The patient is put ting out large amount of clear urine, severely fluid overloaded. Monitor BUN, creatinine, and electr olytes daily. 2.Mitral valve stenosis with mild MR, the stenosis is at least moderate in severity, heavily calcifi ed valve. Recommend mitral valve replacement, which we will arrange for it as an outpatient. 3.Dyslipidemia, on statin, to be continued. SR/MODL Voice ID: [id number] Report ID: [id number]
[2023-08-28] MEDS: TRAMADOL HCL 50 MG TAB PO ONE (01:55)
[2023-08-28 04:23] LABS: Hematocrit 34.1 % (36.0-45.0); Hemoglobin 10.6 g/dL (12.0-15.0); MCH 25.4 pg (27.0-35.0); MCHC 31.2 g/dL (32.0-36.0); MCV 81.4 fL (80-100); MPV 8.9 fL (7.6-11.3); Platelets 95 thou/uL (152-406); RBC Red Blood Cell Count 4.19 M/uL (3.86-4.86); Red Cell Distribution Width 21.2 % (12.1-15.2)
[2023-08-28 04:31] LABS: Anion Gap 5.8 mEq/L (5.0-15.0); Potassium 3.8 mEq/L (3.5-5.1)
[2023-08-28] MEDS: POTASSIUM CL SA 10 MEQ TAB PO ONE ×2 (05:08)
--- NOTE | 2023-08-28 08:55 | P.PN ---
Date of Service: 08/28/23 Subjective: Sitting at bedside chair 3+ edema present on BLE no new complaints ROS: 10 point ROS as noted above, otherwise negative Physical exam GEN: AAOx3, NAD, calm HEENT: Normal conjunctiva, sclera anicteric CV: RRR, S1 S2 present, 3+ pitting edema bilateral lower extremities Pulm: Nonlabored respirations on 4L nasal cannula, bilaterally clear breath sounds ABD: Soft and benign, NT/ND, positive bowel sounds MSK: No joint tenderness, 2+ peripheral pulses Integumentary: No rashes Neuro: Normal speech, normal affect Vitals reviewed Problem List Acute on chronic diastolic congestive heart failure Acute hypoxic respiratory failure secondary to CHF exacerbation MAC with Mitral valve stenosis and mild MR JILLIAN with hyperkalemia Diabetes mellitus type 2 Plan Acute on chronic diastolic congestive heart failure Acute hypoxic respiratory failure secondary to CHF exacerbation MAC with Mitral valve stenosis and mild MR Last echocardiogram 06/20/2023 with left ventricular ejection fraction greater than 65%, mild to moderate aortic valve stenosis Dilated left atrium Was on Lasix 20mg daily at home, increased to 40 mg for the last week without improvement requires continued IV diuresis with lasix 40mg iv bid, wean O2 Appropriate UOP, Slow improvement in lower extremity edema, dyspnea Still with significant lower extremity edema 3/4 Echocardiogram Showing severe MAC with regurg and stenosis- outpatient MVR procedure Dr. Sanchez consulted- help with diuresis Outpatient MVR JILLIAN with hyperkalemia Suspect CRS, improving with diuresis K 3.8, Continue to monitor chemistry daily Diabetes mellitus type 2 ACHS Accu-Check, sliding scale insulin VTE: Lovenox Code: Full Dispo: 48-72 hours
[2023-08-29] MEDS: TRAMADOL HCL 50 MG TAB PO ONE (05:32)
[2023-08-29 05:39] LABS: Anion Gap 7.9 mEq/L (5.0-15.0); Potassium 3.9 mEq/L (3.5-5.1)
--- NOTE | 2023-08-29 07:45 | P.PN ---
Date of Service: 08/29/23 Subjective: Pleasantly awake this morning No new complaints Sitting up in the side of bed eating breakfast Slight improvement to bilateral lower extremity edema ROS: 10 point ROS as noted above, otherwise negative Physical exam GEN: AAOx3, NAD, calm HEENT: Normal conjunctiva, sclera anicteric CV: Regular rate and rhythm, normal S1 S2 present, 3+ pitting edema bilateral lower extremities Pulm: Nonlabored respirations on 4L nasal cannula, bilaterally clear breath sounds, no coughing ABD: Soft and benign on palpation, NT/ND, positive bowel sounds MSK: No joint tenderness, 2+ peripheral pulses Integumentary: No rashes Neuro: Normal speech, normal affect Vitals reviewed Problem List Acute on chronic diastolic congestive heart failure Acute hypoxic respiratory failure secondary to CHF exacerbation MAC with Mitral valve stenosis and mild MR JILLIAN with hyperkalemia Diabetes mellitus type 2 Plan Acute on chronic diastolic congestive heart failure Acute hypoxic respiratory failure secondary to CHF exacerbation MAC with Mitral valve stenosis and mild MR Last echocardiogram 06/20/2023 with left ventricular ejection fraction greater than 65%, mild to moderate aortic valve stenosis Dilated left atrium Was on Lasix 20mg daily at home, increased to 40 mg for the last week without improvement requires continued IV diuresis with lasix 40mg iv bid, wean O2 UOP 3000 ml, Slow improvement in lower extremity edema, dyspnea Still with significant lower extremity edema 3/ Echocardiogram Showing severe MAC with regurg and stenosis- outpatient MVR procedure Dr. Sanchez consulted- help with diuresis Outpatient MVR JILLIAN with hyperkalemia Suspect CRS, improving with diuresis K 3.9, Continue to monitor chemistry daily Renal ultrasound results pending Diabetes mellitus type 2 ACHS Accu-Check, sliding scale insulin VTE: Lovenox Code: Full Dispo: 48-72 hours
[2023-08-29] MEDS: POTASSIUM CL SA 10 MEQ TAB PO ONE (09:49)
--- NOTE | 2023-08-29 18:15 | CON ---
Date of Consultation: 08/29/2023 Reason For Consultation: Elevated BUN and creatinine, anasarca. History Of Present Illness: This is a pleasant 63-year-old female with significant past medical hist ory of diabetes complicated with neuropathy, no retinopathy, hypertension, hyperlipidemia, valvular h eart disease, the patient according to her, was in her regular state of health until May when israel delaney has broken leg. Since then, her condition deteriorated. The patient started to have leg swelling. Gradually, the patient was placed on Lasix, then Lasix was tapered down gradually to 20 mg. The jairo murdock started to have swelling, again for that reason reported to the hospital, found to have hyperka lemia, potassium 5.3, elevation in BUN and creatinine. For that reason, we have been consulted. The patient denied taking any nonsteroidal, no recent antibiotic. Upon arrival to the hospital, the joelle whitney was found to have mild anemia. Creatinine was 1.3 with GFR of 43. Gradually, creatinine has im proved, currently down to 1 with GFR of 58. Past Medical History: 1.Diabetes complicated with neuropathy, no retinopathy. 2.Valvular heart disease. 3.Femoral fracture. Past Surgical History: 1.ORIF. 2.Gallbladder surgery. Family History: Positive for diabetes and CAD. Social History: Ex-smoker. Active alcohol. Denied drugs abuse. Review of Systems: Head and Neck: No red eye. No ear pain. GI: No nausea, no vomiting. : No polyuria. No dysuria. No hematuria. No nocturia. No foamy urine. 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 Respiratory: Has orthopnea. Endocrine: No polydipsia. Skin: No rash. Cardiovascular: Has leg swelling. Physical Examination: Vital Signs: When I saw the patient, the patient is lying in bed comfortable. Blood pressure 127/57 , pulse of 87, afebrile. Chest: Faint rales bilateral. Heart: S1, S2 systolic murmur. Abdomen: Soft, nontender. Extremities: Plus edema. Neurologic: Alert. No focality. Laboratory Data: Upon admission to the hospital, creatinine 1.3, GFR of 43, potassium 5.3. Sodium 1 35 today. Sodium 133, potassium 3.9, bicarb 35, BUN 30, creatinine 1, GFR 58, calcium 8.9. BNP 5329 . Urinalysis, specific gravity 1.029, negative for infection. Assessment And Plan: 1.Acute kidney injury secondary to cardiorenal. Still the patient is on the over volume side with d iastolic dysfunction, preserved ejection fraction. I am going to continue the patient on current dos e of Lasix. I am going to send for PC ratio and renal ultrasound and we will follow up the patient. 2.Anasarca, mostly secondary to cardiorenal, congestive heart failure, diastolic dysfunction, preser joseluis ejection fraction as by current echocardiogram with presence of normalized kidney function. I am going to go ahead and send for PC ratio and send for TSH and we will follow up the patient. Continu e current diuresis dose. I am going to be reluctant on adding any spironolactone given the history o f hyperkalemia. 3.Diabetes as by primary. 4.Hypertension, controlled optimal. Currently, we will continue current treatment. We will utilize blood pressure for more diuresis. The patient is going to be a good candidate later on to add BABAR i nhibitor or ARB given the diabetes and congestive heart failure. 5.Congestive heart failure with diastolic dysfunction with exacerbation as above. 6.Hyperkalemia, resolved. Continue diuresis. 7.Hyponatremia secondary to dilutional. Continue diuresis. Current Medications: Aspirin, Lovenox, atorvastatin, Tylenol, Lasix 40 b.i.d., insulin, tramadol. Time spent examining the patient [id number], reviewing data, lab and radiology, placing order, disc ussing the case with the patient, discussing the case with the steam hoist operator including hospitalist and nursing staff more than 75 minutes. NATHALY Voice ID: [id number] Report ID: [id number]
--- NOTE | 2023-08-29 18:34 | RAD REPORT ---
EXAM DESCRIPTION: US - Renal Ultrasound-Complete - 08/29/2023 3:00 pm CLINICAL HISTORY: JILLIAN COMPARISON: No comparisons TECHNIQUE: Sonographic grayscale and color flow images of the kidneys and bladder were obtained. FINDINGS: Both kidneys are normal in size, shape, and echotexture. The right kidney measures 9.1 cm in length. Mild prominence of the right renal pelvis, may reflect mi ld hydronephrosis or extra renal pelvis. No focal mass, or echogenic calculi. The left kidney measures 10.4 cm in length. No hydronephrosis, focal mass, or echogenic calculi. The urinary bladder is decompressed limiting evaluation. IMPRESSION: Mild right hydronephrosis versus extrarenal pelvis. Bladder is decompressed limiting evaluation.
[2023-08-30 04:21] LABS: Albumin 2.7 g/dL (3.4-5.0); Magnesium 1.8 mg/dL (1.6-2.4); Phosphorus 3.2 mg/dL (2.5-4.9); Thyroid Stimulating Hormone 1.58 uIU/mL (0.358-3.740)
[2023-08-30] MEDS: FUROSEMIDE 40 MG/4 ML VIAL IV SCH (08:55)
--- NOTE | 2023-08-30 09:37 | P.PN ---
Date of Service: 08/30/23 Subjective: Awake, stated she is feeling depressed. Slow improvement with diuresis elevating legs throughout the day ROS: 10 point ROS as noted above, otherwise negative Physical exam GEN: AAOx3, NAD HEENT: Normal conjunctiva, sclera anicteric CV: RRR, 3+ pitting edema bilateral lower extremities, S1 S2 present, systolic murmur Pulm: Nonlabored respirations on nasal cannula, bilaterally clear breath sounds, 4 LNC ABD: Soft and benign on palpation, NT/ND, positive bowel sounds MSK: No joint tenderness, 2+ peripheral pulses Integumentary: No rashes Neuro: Normal speech, normal affect, depressed Vitals reviewed Problem List Acute on chronic diastolic congestive heart failure Acute hypoxic respiratory failure secondary to CHF exacerbation JILLIAN with hyperkalemia Diabetes mellitus type 2 Plan Acute on chronic diastolic congestive heart failure Acute hypoxic respiratory failure secondary to CHF exacerbation Last echocardiogram 06/20/2023 with left ventricular ejection fraction greater than 65%, mild to moderate aortic valve stenosis Dilated left atrium FUNERAL ASSISTANT: Was on Lasix 20mg daily at home, increased to 40 mg for tone week without improvement requires continued IV diuresis with lasix 40mg iv Q6h, wean O2 if possible, on 4 LNC Appropriate UOP, Slow improvement in lower extremity edema, elevate legs, dyspnea Still with significant lower extremity edema 3/4 Echocardiogram Showing severe MAC with regurg and stenosis JILLIAN with hyperkalemia Suspect CRS, improving with diuresis K 4.0, Continue to monitor chemistry daily renal ultrasound reports "Mild right hydronephrosis versus extrarenal pelvis. Bladder is decompressed limiting evaluation." Diabetes mellitus type 2 ACHS Accu-Check, sliding scale insulin hyperglcemic added semglee 15 units HS VTE: Lovenox Code: Full Dispo: 48-72 hours
--- NOTE | 2023-08-30 14:23 | P.PN ---
Subjective Date of Service: 08/30/23 Chief Complaint: Shortness of breath Subjective: No new changes Physical Examination - Vital Signs Temperature: 99.2 F Blood Pressure: 123/54 Pulse: 95 Respirations: 18 Pulse Ox (%): 97 - Physical Exam General: Other (appears her stated age) HEENT: Atraumatic, Normocephalic Neck: Supple Respiratory: Other (symmetric chest expansion) Cardiovascular: No rubs, No murmurs Gastrointestinal: No rebound, No guarding Musculoskeletal: No clubbing Integumentary: No warmth Neurological: Normal tone Lymphatics: No axilla or inguinal lymphadenopathy Urinary: Other (no bladder distention) External genitalia: Deferred Rectal: Deferred - Studies Microbiology Data (last 24 hrs): 08/24/23 21:15 Blood - Blood Aerobic Blood Culture - Final No growth in 5 days. 08/24/23 21:15 Blood - Blood Anaerobic Blood Culture - Final No growth in 5 days. Assessment And Plan - Plan 1. Acute kidney injury 2/2 CRS1. SCr improved to 1.0. Cont lasix. [place] po fluid intake. 2. Anasarca, mostly secondary to cardiorenal, congestive heart failure, diastolic dysfunction, preserved ejection fraction. Cont Lasix. Low Na diet < 2g/d. 3. DM2. Mngt per primary team. 4. Hypertension. Continue current med regimen. 5. Congestive heart failure with diastolic dysfunction with exacerbation. Lasix as above. 6. Hyperkalemia, resolved. Cont lasix. 7. Hyponatremia, mild, monitor.
--- NOTE | 2023-08-30 16:11 | P.PN ---
Subjective Date of Service: 08/30/23 Chief Complaint: Shortness of breath Subjective: No new changes Review of Systems 10-point ROS is otherwise unremarkable Physical Examination - Vital Signs Temperature: 99.2 F Blood Pressure: 123/54 Pulse: 95 Respirations: 18 Pulse Ox (%): 97 - Physical Exam General: Alert, Oriented x3 HEENT: Atraumatic Neck: Supple, JVD distended Respiratory: Crackles/rales Cardiovascular: Normal S1 S2, Edema Gastrointestinal: Normal bowel sounds - Studies Microbiology Data (last 24 hrs): 08/24/23 21:15 Blood - Blood Aerobic Blood Culture - Final No growth in 5 days. 08/24/23 21:15 Blood - Blood Anaerobic Blood Culture - Final No growth in 5 days. Assessment And Plan - Current Problems (Diagnosis) (1) Acute on chronic diastolic (congestive) heart failure Current Visit: Yes Status: Acute - Plan Continue IV diuresis with Lasix 40 mg IV q 6 hours and monitor input and output closely correct electrolytes. will initiate heart failure goal directed medical therapy once patient is more euvolemic.
[2023-08-30] MEDS: DOCUSATE NA 100 MG CAP PO SCH (21:00)
[2023-08-30] MEDS: INSULIN GLARGINE 100 UNIT/ML SQ SCH (21:31)
[2023-08-31 03:56] LABS: Albumin 2.7 g/dL (3.4-5.0); Anion Gap 5.6 mEq/L (5.0-15.0); Magnesium 1.7 mg/dL (1.6-2.4); Phosphorus 3.1 mg/dL (2.5-4.9); Potassium 3.6 mEq/L (3.5-5.1)
[2023-08-31 06:39] LABS: UR PROTEIN 21.2 mg/dL (<11.9); Urine Protein/Creatinine Ratio 0.37 ratio (<0.15)
--- NOTE | 2023-08-31 07:25 | P.PN ---
Date of Service: 08/31/23 Subjective: Sitting at bedside chair with feet down Reports putting the recliner up to allow for elevation of her legs right lower extremity more soft today Continues to be short of breath, starting nebulizer treatment ROS: 10 point ROS as noted above, otherwise negative Physical exam GEN: AAOx3, NAD, calm and cooperative HEENT: Normal conjunctiva, sclera anicteric CV: Regular rate and rhythm, 3+ pitting edema bilateral lower extremities, normal S1 S2, systolic murmur Pulm: Nonlabored respirations on nasal cannula, bilateral expiratory wheeze, 4 LNC ABD: Soft and benign on palpation, NT/ND, normoactive bowel sounds MSK: No joint tenderness, 2+ peripheral pulses Integumentary: No rashes, erythema to BLE Neuro: Normal speech, normal affect Vitals reviewed Problem List Acute on chronic diastolic congestive heart failure Acute hypoxic respiratory failure secondary to CHF exacerbation JILLIAN with hyperkalemia Diabetes mellitus type 2 Plan Acute on chronic diastolic congestive heart failure Acute hypoxic respiratory failure secondary to CHF exacerbation Last echocardiogram 06/20/2023 with left ventricular ejection fraction greater than 65%, mild to moderate aortic valve stenosis Dilated left atrium 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 Bladder is decompressed limiting evaluation." Diabetes mellitus type 2 ACHS Accu-Check, sliding scale insulin hyperglcemic added semglee 15 units HS VTE: Lovenox Code: Full Dispo: 48-72 hours
[2023-08-31] MEDS ORDERED: LEVALBUTEROL 0.63 MG/3 ML NEB NEB PRN (07:27)
[2023-08-31] MEDS: MAGNESIUM SULFATE 1 gm IVPB 1 GM/100 ML BAG IV ONE (08:03)
[2023-08-31] MEDS: POTASSIUM CL SA 10 MEQ TAB PO ONE (08:08)
--- NOTE | 2023-08-31 14:06 | P.PN ---
Subjective Date of Service: 08/31/23 Chief Complaint: Shortness of breath Subjective: No new changes Review of Systems 10-point ROS is otherwise unremarkable Physical Examination - Vital Signs Temperature: 99.2 F Blood Pressure: 123/54 Pulse: 95 Respirations: 18 Pulse Ox (%): 97 - Physical Exam General: Alert, Oriented x3 HEENT: Atraumatic Neck: JVD distended Respiratory: Crackles/rales Cardiovascular: Edema Gastrointestinal: Normal bowel sounds Assessment And Plan - Current Problems (Diagnosis) (1) Acute on chronic diastolic (congestive) heart failure Current Visit: Yes Status: Acute - Plan Continue IV diuresis with Lasix 40 mg IV q 6 hours and monitor input and output closely Metolazone 2.5 mg IV X1 today correct electrolytes. will initiate heart failure goal directed medical therapy once patient is more euvolemic.
[2023-08-31] MEDS: METOLAZONE 2.5 MG TABLET PO ONE (14:54)
--- NOTE | 2023-09-01 00:30 | PN ---
Date of Progress Note: 08/31/2023 Chief Complaint: Shortness of breath, generalized weakness, acute kidney injury. History: The patient has nonoliguric urine output. She is treated for acute kidney injury secondary to cardiorenal syndrome. Serum creatinine level improved. Patient is on Lasix. Review of Systems: Denies chest pain, palpitations. Physical Examination: Lungs: Diminished breath sound at bases. Few crackles at bases. Heart: S1, S2. Abdomen: Soft, benign. Extremities: Slight edema. Impression And Plan: 1.Acute kidney injury secondary to cardiorenal syndrome. Serum creatinine level has improved. Cont inue Lasix. Continue adequate p.o. fluid intake. 2.Anasarca secondary to congestive heart failure. She has diastolic dysfunction, preserved ejection fraction. Continue Lasix. Low-sodium diet with sodium intake less than 2 g per day. Avoid nephrot oxic medication. 3.Diabetes mellitus, continue insulin. 4.Hypertension, continue current blood pressure medication. 5.Congestive heart failure with diastolic dysfunction and exacerbation. Lasix was ordered. 6.Hyperkalemia, resolved. Continue Lasix. 7.Hyponatremia, mild secondary to cardiorenal syndrome. Continue Lasix and adequate p.o. fluid inta ke. The patient is on metolazone, there is some metabolic alkalosis present due to diuretic. Metolazone is on hold. Continue to monitor electrolytes. EB/MODL Voice ID: [id number] Report ID: [id number]
[2023-09-01 04:14] LABS: Albumin 2.8 g/dL (3.4-5.0); Anion Gap 6.3 mEq/L (5.0-15.0); Magnesium 1.7 mg/dL (1.6-2.4); Phosphorus 2.9 mg/dL (2.5-4.9); Potassium 3.3 mEq/L (3.5-5.1)
[2023-09-01 05:00] LABS: Absolute Basophils 0.1 K/uL (0-0.5); Absolute Eosinophils 0.2 K/uL (0-0.5); Absolute Lymphocytes (CBC) 2.2 K/uL (0.7-4.9); Absolute Neutrophil 7.2 K/uL (1.8-8.0); Basophils % 0.5 % (0-1.3); Eosinophils % 1.9 % (0-4.4); Hemoglobin 10.7 g/dL (12.0-15.0); Lymphocytes % 20.8 % (15.3-44.8); MCH 25.2 pg (27.0-35.0); MCHC 31.4 g/dL (32.0-36.0); MCV 80.1 fL (80-100); MPV 9.5 fL (7.6-11.3); Monocytes % 9.5 % (3.3-12.3); Neutrophils % 67.3 % (41.7-73.7); Platelets 113 thou/uL (152-406); RBC Red Blood Cell Count 4.24 M/uL (3.86-4.86); Red Cell Distribution Width 21.9 % (12.1-15.2)
[2023-09-01] MEDS: METOPROLOL TAR 25 MG TAB PO SCH (05:36)
--- NOTE | 2023-09-01 07:39 | P.PN ---
Date of Service: 09/01/23 Subjective: She reports nosebleed overnight, will hold DVT prophylaxis and aspirin for now Reports depression but does not want any medications to help Blood pressure low this morning refusing ABG/VBG ROS: 10 point ROS as noted above, otherwise negative Physical exam GEN: Alert and oriented x3, NAD, calm HEENT: Normal conjunctiva, sclera anicteric CV: RRR, 3+ pitting edema bilateral lower extremities, systolic murmur noted Pulm: Nonlabored respirations on nasal cannula, bilateral expiratory wheeze, 4 LNC ABD: Soft and benign on palpation, NT/ND, positive bowel sounds MSK: No joint tenderness, 2+ peripheral pulses Integumentary: No rashes, erythema to BLE, skin breakdown to left posterior calf Neuro: Normal speech, normal affect, depressed Vitals reviewed Problem List Acute on chronic diastolic congestive heart failure Acute hypoxic respiratory failure secondary to CHF exacerbation JILLIAN with hyperkalemia Diabetes mellitus type 2 Plan Acute on chronic diastolic congestive heart failure Acute hypoxic respiratory failure secondary to CHF exacerbation Hypercarbia/alkalosis Last echocardiogram 06/20/2023 with left ventricular ejection fraction greater than 65%, mild to moderate aortic valve stenosis Dilated left atrium 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 Bladder is decompressed limiting evaluation." Diabetes mellitus type 2 ACHS Accu-Check, sliding scale insulin hyperglcemic added semglee 15 units HS VTE: Lovenox- on hold d/t epistaxis Code: Full Dispo: 48-72 hours <Diana Levin - Last Filed: 09/01/23 12:56> Patient seen and examined, plan of care discussed with Ms. Levin. Patient developed epistaxis last night. Epistaxis likely related to drying up of nasal mucosa from oxygen. She is not bleeding grossly, she has intermittent trickles. She is currently oxygen dependent and declining nasal packing. Hold all anticoagulation and antiplatelets. Aerosolized oxygen adequately Nasal saline spray Refractory anasarca suspect secondary to severe mitral valve disease. Continue aggressive diuresis Nephrology is following. Monitor and optimize electrolytes and renal function. <rebecca khan - Last Filed: 09/01/23 15:18>
[2023-09-01] MEDS ORDERED: SPIRONOLACTONE 25 MG TABLET PO SCH (09:00)
[2023-09-01] MEDS ORDERED: PROMETHAZINE INJ 25 MG/ML AMP IV PRN (10:21)
[2023-09-01] MEDS: METOLAZONE 5 MG TABLET PO SCH (12:50)
--- NOTE | 2023-09-01 13:45 | P.PN ---
Subjective Date of Service: 09/01/23 Chief Complaint: Shortness of breath Subjective: No new changes Review of Systems 10-point ROS is otherwise unremarkable Physical Examination - Vital Signs Temperature: 99.1 F Blood Pressure: 91/47 Pulse: 77 Respirations: 16 Pulse Ox (%): 93 - Physical Exam General: Alert, Oriented x3 HEENT: Atraumatic Neck: Supple Respiratory: Crackles/rales Cardiovascular: Normal S1 S2, Edema Gastrointestinal: Normal bowel sounds Assessment And Plan - Current Problems (Diagnosis) (1) Acute on chronic diastolic (congestive) heart failure Current Visit: Yes Status: Acute - Plan Continue IV diuresis with Lasix 40 mg IV q 6 hours and monitor input and output closely Metolazone 5 mg po x1 today correct electrolytes. will initiate heart failure goal directed medical therapy once patient is more euvolemic.
[2023-09-01] MEDS: POTASSIUM CL SA 10 MEQ TAB PO ONE (22:34)
--- NOTE | 2023-09-01 23:37 | PN ---
Date of Progress Note: 09/01/2023 Chief Complaint: Shortness of breath, generalized weakness, acute kidney injury. History Of Present Illness: The patient has nonoliguric urine output. She is treated for acute kidney injury secondary to cardiorenal syndrome. She presented to the hospital with shortness of breath, anasarca, serum creatinine level is gradually improving. The patient is on Lasix. Review of Systems: Denies PND, orthopnea. She has dyspnea on exertion. Denies syncope. Physical Examination: Lungs: Equal chest expansion. Diminished breath sounds at bases. Few crackles at bases. Heart: S1, S2. Abdomen: Soft, benign. Extremities: Slight edema. Impression And Plan: 1. Acute kidney injury secondary to cardiorenal syndrome. Serum creatinine level has improved. Continue Lasix. Continue adequate p.o. fluid intake. 2. Anasarca secondary to congestive heart failure and fluid overload. The patient has diastolic congestive heart failure with preserved ejection fraction. Continue Lasix and low-sodium diet. Sodium intake 2 g per day and avoid nephrotoxic medication. 3. Diabetes mellitus with renal manifestation. Continue insulin. 4. Hypertension. Continue current blood pressure medication. 5. Congestive heart failure with diastolic dysfunction and exacerbation. Lasix was ordered. Monitor intake and output. Adjust Lasix dose according to clinical status and fluid overload. 6. Hyperkalemia, resolved. Continue Lasix. Monitor magnesium and renal panel. 7. Hyponatremia, mild secondary to congestive heart failure associated with cardiorenal syndrome. Continue IV Lasix and adequate p.o. fluid intake. 8. Metabolic alkalosis secondary to diuretic. Metolazone is currently on hold. The patient is on furosemide. Continue to monitor electrolytes and replace potassium. EB/MODL Voice ID: [id number] Report ID: [id number] LISA
[2023-09-02] MEDS: TRAMADOL HCL 50 MG TAB PO PRN (01:16)
[2023-09-02 06:48] LABS: Albumin 2.8 g/dL (3.4-5.0); Anion Gap 5.5 mEq/L (5.0-15.0); Magnesium 1.7 mg/dL (1.6-2.4); Potassium 3.5 mEq/L (3.5-5.1)
[2023-09-02] MEDS: POTASSIUM CL SA 10 MEQ TAB PO ONE (09:03)
[2023-09-02] MEDS: MAGNESIUM SULFATE 1 gm IVPB 1 GM/100 ML BAG IV ONE (09:05)
--- NOTE | 2023-09-02 09:28 | P.PN ---
Date of Service: 09/02/23 Subjective: nose bleed has stopped, better flexibility to BLE skin Pleasant this morning, feeling better ROS: 10 point ROS as noted above, otherwise negative Physical exam GEN: AAOx3, NAD, calm and cooperative HEENT: Normal conjunctiva, sclera anicteric CV: RRR, 3+ pitting edema bilateral lower extremities, systolic murmur noted Pulm: Nonlabored respirations on nasal cannula, bilateral expiratory wheeze, 4 LNC ABD: Soft and benign on palpation, less edema noted, NT/ND, positive bowel sounds MSK: No joint tenderness, 2+ peripheral pulses Integumentary: No rashes, erythema to BLE, skin breakdown to left posterior calf Neuro: Normal speech, normal affect, depressed Vitals reviewed Problem List Acute on chronic diastolic congestive heart failure Acute hypoxic respiratory failure secondary to CHF exacerbation JILLIAN with hyperkalemia Diabetes mellitus type 2 Plan Acute on chronic diastolic congestive heart failure Acute hypoxic respiratory failure secondary to CHF exacerbation Hypercarbia/alkalosis Last echocardiogram 06/20/2023 with left ventricular ejection fraction greater than 65%, mild to moderate aortic valve stenosis Dilated left atrium 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 Boswell monitoring for best time to initiate heart failure medications Strict I and O- UOP acceptable- will Q12h output charted with DAILY weights 1200 ml daily fluid restriction with low sodium diet 2gram JILLIAN with hyperkalemia Suspect CRS, improving with diuresis K 3.5, Continue to monitor chemistry daily renal ultrasound reports "Mild right hydronephrosis versus extrarenal pelvis. Bladder is decompressed limiting evaluation." nephrology following Diabetes mellitus type 2 ACHS Accu-Check, sliding scale insulin hyperglcemic- more controlled added semglee 15 units HS VTE: Lovenox- restarted Code: Full Dispo: 48-72 hours
--- NOTE | 2023-09-02 22:51 | PN ---
Date of Progress Note: 09/02/2023 Chief Complaint: Shortness of breath, generalized weakness, acute kidney injury. Subjective: The patient has nonoliguric urine output. She is treated for acute kidney injury [place] to cardiorenal syndrome. She presented to the hospital with shortness of breath, anasarca. Seru m creatinine level is gradually improving. The patient is tolerating Lasix. Review of Systems: Denies PND, orthopnea. Dyspnea on exertion has improved. Legs: Slight edema, overall improved. Physical Examination: Lungs: Equal chest expansion. Diminished breath sounds at bases. Few crackles at the bases. No rh onchi. Heart: S1 and S2. No pericardial friction rub. Abdomen: Soft, benign, obese. Extremities: Edema in the legs, both ankles and pretibial. Impression And Plan: 1.Acute on chronic kidney injury. The patient has cardiorenal syndrome. She has nonoliguric urine output. She is on Lasix. Continue adequate p.o. fluid intake. Monitor intake and output. 2.Anasarca secondary to congestive heart failure and fluid overload. The patient has diastolic tania estive heart failure with preserved ejection fraction. Continue Lasix and low-sodium diet. Sodium i ntake 2 g per day. Avoid nephrotoxic medication. 3.Diabetes mellitus with renal manifestation. Monitor proteinuria. Continue insulin. 4.Congestive heart failure with diastolic dysfunction and exacerbation. Lasix was ordered. Monitor intake and output. Adjust Lasix dose, according to clinical status, and fluid overload. 5.Hyperkalemia, resolved. Continue Lasix. Monitor magnesium and renal panel. 6.Hyponatremia, mild secondary to congestive heart failure associated with cardiorenal syndrome. Co ntinue IV Lasix and adequate p.o. fluid intake. 7.Metabolic alkalosis secondary to diuretic. Metolazone is currently on hold. The patient is on fu rosemide. Continue to monitor electrolytes and replace potassium. EB/MODL Voice ID: [id number] Report ID: [id number]
[2023-09-03 07:51] LABS: Magnesium 1.9 mg/dL (1.6-2.4); Phosphorus 3.9 mg/dL (2.5-4.9)
[2023-09-03] MEDS ORDERED: ENOXAPARIN 40 MG/0.4 ML SQ SCH (09:00)
[2023-09-03] MEDS: POTASSIUM CL SA 10 MEQ TAB PO ONE (10:02)
--- NOTE | 2023-09-03 11:28 | PN ---
Date of Progress Note: 09/03/2023 Subjective: The patient was admitted to the hospital with hyponatremia, hyperkalemia, over volume with CHF exacerbation. The patient was diuresed. Kidney function continue to improve. The patient's creatinine is down to 1.1. Blood pressure has been controlled. The patient's weight has been improved. The patient lost 7 pounds since admission. Physical Examination: Vital Signs: When I saw the patient, blood pressure 106/45, pulse of 76, afebrile. Chest: Crackles, more prominent on the right side. Heart: S1, S2. Systolic murmur. Abdomen: Soft, nontender. Extremities: Plus edema. Neurologic: Alert. No focality. Laboratory Data: Sodium 134, potassium 3, bicarb 45, BUN 39, creatinine 1.1, calcium 9.7, phosphorus 3.9, magnesium 1.9, albumin 3, corrected calcium 10.5, hemoglobin 10.7. PC ratio is 0.3. Renal ultrasound, 9.1/10.4, mild right hydronephrosis. Current Medications: The patient on include diphenhydramine, aspirin, breathing treatment, Lovenox, atorvastatin, metoprolol, Lasix 40 q.6, Zofran, KCl. Assessment And Plan: 1. Acute kidney injury secondary to cardiorenal diastolic dysfunction. Improve significantly. Appropriate weight loss. I am going to continue with diuresis. Plan to switch to oral, hopefully tomorrow and we will follow up. 2. Hyponatremia, dilutional. Continue diuresis. 3. Hypokalemia. We will supplement. We will start the patient on Aldactone and we will follow up the patient. 4. Congestive heart failure with exacerbation. We will optimize the fluid status and spironolactone. 5. Valvular heart disease. Waiting clearance by Cardiology. The patient cleared from renal standpoint to proceed. Time spent examining the patient [id number] reviewing data lab and the radiology placing orders or discussing the case with the patient family discussing the case with the steam shovel operator and the hospitalist nursing staff more than 35-minute VINNIE/ANTONIA Voice ID: [id number] Report ID: [id number] LISA
--- NOTE | 2023-09-03 12:20 | P.PN ---
Date of Service: 09/03/23 Subjective: Dyspnea has improved Lower extremity slowly improving Feeling better today ROS: 10 point ROS as noted above, otherwise negative Physical exam GEN: AAOx3, NAD, calm and cooperative HEENT: Normal conjunctiva, sclera anicteric CV: RRR, 3+ pitting edema bilateral lower extremities, systolic murmur noted Pulm: Nonlabored respirations on nasal cannula 4 LNC ABD: Soft and benign on palpation, less edema noted, NT/ND, positive bowel sounds MSK: No joint tenderness, 2+ peripheral pulses Integumentary: No rashes, erythema to BLE, skin breakdown to left posterior calf Neuro: Normal speech, normal affect, depressed Vitals reviewed Problem List Acute on chronic diastolic congestive heart failure Acute hypoxic respiratory failure secondary to CHF exacerbation JILLIAN with hyperkalemia Diabetes mellitus type 2 Plan Acute on chronic diastolic congestive heart failure Acute hypoxic respiratory failure secondary to CHF exacerbation Hypercarbia/alkalosis Last echocardiogram 06/20/2023 with left ventricular ejection fraction greater than 65%, mild to moderate aortic valve stenosis Dilated left atrium 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, increased to 40 mg for one week without improvement requires continued IV diuresis with lasix 40mg iv Q6h wean O2 if possible, on 4 LNC, dyspnea continued slow improvement in lower extremity edema, elevate legs Still with significant lower extremity edema 3/4 Echocardiogram performed here showing severe MAC with regurg and stenosis Will likely need valve replacement-to be further discussed with cardiology Strict I and O- UOP acceptable- will Q12h output charted with DAILY weights 1200 ml daily fluid restriction with low sodium diet 2gram JILLIAN with hyperkalemia Suspect CRS, improving with diuresis K 3.5, Continue to monitor chemistry daily renal ultrasound reports "Mild right hydronephrosis versus extrarenal pelvis. Bladder is decompressed limiting evaluation." nephrology following Diabetes mellitus type 2 ACHS Accu-Check, sliding scale insulin hyperglcemic- more controlled added semglee 15 units HS VTE: Lovenox- restarted Code: Full Dispo: 48-72 hours
[2023-09-03] MEDS: SPIRONOLACTONE 25 MG TABLET PO SCH (20:50)
[2023-09-03] MEDS: DIPHENHYDRAMINE 25 MG TAB/CAP PO PRN (23:24)
--- NOTE | 2023-09-04 10:49 | RAD REPORT ---
EXAM DESCRIPTION: RAD - Chest Single View - 09/04/2023 10:41 am CLINICAL HISTORY: COPD Chest pain. COMPARISON: Chest Single View dated 08/24/2023 FINDINGS: Portable technique limits examination quality. Mild bilateral pulmonary opacities suggesting pulmonary edema. Moderate right and small left pleural effusion suspected. Heart is mildly enlarged in size. No displaced fractures. IMPRESSION: Findings favor mild to moderate CHF/ volume overload pattern. Infiltrate in the right anirudh ng base is not excluded.
--- NOTE | 2023-09-04 10:52 | PN ---
Date of Progress Note: 09/04/2023 Subjective: The patient was admitted to the hospital with acute kidney injury secondary to cardiorenal syndrome. The patient was diuresed. The patient planned for surgery. Physical Examination: Vital Signs: Blood pressure 100/55, pulse of 73, afebrile. Chest: Crackles bilateral. Heart: S1, S2, systolic murmur. Abdomen: Soft, nontender. Extremities: Plus edema. Neurologic: Alert. No focality. Laboratory Data: Hemoglobin 10.7. Chemistry still pending. Sodium 134, potassium 3, bicarb 45, BUN 39, creatinine 1.1, calcium 9.7, phosphorus 3.9, magnesium 1.9, albumin 3, corrected calcium 10.5. Current Medications: The patient on include: 1. Aspirin. 2. Lovenox. 3. Atorvastatin. 4. Metoprolol 25 b.i.d. 5. Spironolactone 25 b.i.d. 6. Lasix 40 q.6. 7. Insulin. 8. Tramadol. 9. KCl. Assessment And Plan: 1. Acute kidney injury secondary to cardiorenal, still on the over volume side. I am going to continue diuresing the patient and we will follow up recovery. 2. Hypertension. Currently, blood pressure on the lower side. We will continue to utilize blood pressure for more diuresis and we will monitor the patient. 3. Hyponatremia, dilutional as above. 4. Hyperkalemia, resolved, currently hypokalemic. The patient has replacement yesterday and we will start the patient on spironolactone. We will follow up lab. 5. Congestive heart failure with exacerbation as above. Time spent examining the patient [id number] reviewing data lab and the radiology placing orders or discussing the case with the patient family discussing the case with the steam flattener and the hospitalist nursing staff more than 35-minute VINNIE/ANTONIA Voice ID: [id number] Report ID: [id number] LISA
[2023-09-04] MEDS: ALBUMIN HUMAN 25% 12.5 GM, FUROSEMIDE 100 MG in NA CHLORIDE 0.9% 40 ML IV SCH (11:01)
--- NOTE | 2023-09-04 11:46 | P.PN ---
Date of Service: 09/04/23 Subjective: Dyspnea has improved Lower extremity slowly improving Feeling better today No acute events overnight ROS: 10 point ROS as noted above, otherwise negative Physical exam GEN: AAOx3, NAD, calm and cooperative HEENT: Normal conjunctiva, sclera anicteric CV: RRR, 3+ pitting edema bilateral lower extremities, systolic murmur noted Pulm: Nonlabored respirations on nasal cannula 4 LNC ABD: Soft and benign on palpation, less edema noted, NT/ND, positive bowel sounds MSK: No joint tenderness, 2+ peripheral pulses Integumentary: No rashes, erythema to BLE, skin breakdown to left posterior calf Neuro: Normal speech, normal affect, depressed Vitals reviewed Problem List Acute on chronic diastolic congestive heart failure Acute hypoxic respiratory failure secondary to CHF exacerbation JILLIAN with hyperkalemia Diabetes mellitus type 2 Plan Acute on chronic diastolic congestive heart failure Acute hypoxic respiratory failure secondary to CHF exacerbation Hypercarbia/alkalosis Last echocardiogram 06/20/2023 with left ventricular ejection fraction greater than 65%, mild to moderate aortic valve stenosis Dilated left atrium 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, increased to 40 mg for one week without improvement requires continued IV diuresis with lasix 40mg iv Q6h wean O2 if possible, on 3 LNC, dyspnea continued slow improvement in lower extremity edema, elevate legs Still with significant lower extremity edema Echocardiogram performed here showing severe MAC with regurg and stenosis Will likely need valve replacement-to be further discussed with cardiology Strict I and O- UOP acceptable- will Q12h output charted with DAILY weights 1200 ml daily fluid restriction with low sodium diet 2gram JILLIAN with hyperkalemia Suspect CRS, improving with diuresis Continue to monitor chemistry daily renal ultrasound reports "Mild right hydronephrosis versus extrarenal pelvis. Bladder is decompressed limiting evaluation." nephrology following Diabetes mellitus type 2 ACHS Accu-Check, sliding scale insulin hyperglcemic- more controlled added semglee 15 units HS VTE: Lovenox- restarted Code: Full Dispo: 48-72 hours
[2023-09-04 12:43] LABS: Albumin 2.8 g/dL (3.4-5.0); Anion Gap 8.6 mEq/L (5.0-15.0); Phosphorus 3.8 mg/dL (2.5-4.9); Potassium 3.6 mEq/L (3.5-5.1)
--- NOTE | 2023-09-04 17:22 | P.PN ---
Subjective Date of Service: 09/04/23 Chief Complaint: Shortness of breath Subjective: No new changes Review of Systems 10-point ROS is otherwise unremarkable Physical Examination - Vital Signs Temperature: 98.6 F Blood Pressure: 107/55 Pulse: 86 Respirations: 16 Pulse Ox (%): 91 - Physical Exam General: Alert, Oriented x3 HEENT: Atraumatic Neck: Supple Respiratory: Crackles/rales Cardiovascular: Normal S1 S2, Edema Gastrointestinal: Normal bowel sounds Assessment And Plan - Current Problems (Diagnosis) (1) Acute on chronic diastolic (congestive) heart failure Current Visit: Yes Status: Acute - Plan Continue IV diuresis with Lasix per nephrology team recommendations correct electrolytes. discussed with patient in details that MAC and mitral valve disease will be addressed as outpatient with cardiology.
[2023-09-05 08:36] LABS: Albumin 3.1 g/dL (3.4-5.0); Anion Gap 6.3 mEq/L (5.0-15.0); Phosphorus 3.6 mg/dL (2.5-4.9); Potassium 3.3 mEq/L (3.5-5.1)
[2023-09-05] MEDS: ALBUMIN HUMAN 25% 12.5 GM, FUROSEMIDE 100 MG in NA CHLORIDE 0.9% 40 ML IV SCH (12:05)
[2023-09-05] MEDS: POTASSIUM CL SA 10 MEQ TAB PO ONE (13:00)
--- NOTE | 2023-09-05 13:28 | P.PN ---
Date of Service: 09/05/23 Subjective: Dyspnea has improved Lower extremity slowly improving Feeling better today No acute events overnight ROS: 10 point ROS as noted above, otherwise negative Physical exam GEN: AAOx3, NAD, calm and cooperative HEENT: Normal conjunctiva, sclera anicteric CV: RRR, 3+ pitting edema bilateral lower extremities, systolic murmur noted Pulm: Nonlabored respirations on nasal cannula 4 LNC ABD: Soft and benign on palpation, less edema noted, NT/ND, positive bowel sounds MSK: No joint tenderness, 2+ peripheral pulses Integumentary: No rashes, erythema to BLE, skin breakdown to left posterior calf Neuro: Normal speech, normal affect, depressed Vitals reviewed Problem List Acute on chronic diastolic congestive heart failure Acute hypoxic respiratory failure secondary to CHF exacerbation JILLIAN with hyperkalemia Diabetes mellitus type 2 Plan Acute on chronic diastolic congestive heart failure Acute hypoxic respiratory failure secondary to CHF exacerbation Hypercarbia/alkalosis Last echocardiogram 06/20/2023 with left ventricular ejection fraction greater than 65%, mild to moderate aortic valve stenosis Dilated left atrium 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 20mg daily at home, increased to 40 mg for one week without improvement wean O2 if possible, on 3 LNC, dyspnea Still with significant lower extremity edema Echocardiogram performed here showing severe MAC with regurg and stenosis Will likely need valve replacement as an outpatient Strict I and O- UOP acceptable- will Q12h output charted with DAILY weights 1200 ml daily fluid restriction with low sodium diet 2gram Started on lasix drip 09/03, continue through 09/05 per nephrology JILLIAN with hyperkalemia Suspect CRS, improving with diuresis Continue to monitor chemistry daily renal ultrasound reports "Mild right hydronephrosis versus extrarenal pelvis. Bladder is decompressed limiting evaluation." nephrology following Diabetes mellitus type 2 ACHS Accu-Check, sliding scale insulin hyperglcemic- more controlled added semglee 15 units HS VTE: Lovenox- restarted Code: Full Dispo: 48-72 hours
--- NOTE | 2023-09-05 16:04 | PN ---
Date of Progress Note: 09/05/2023 Subjective: The patient was admitted to the hospital with acute kidney injury, anasarca secondary to cardiorenal. The patient started on aggressive diuresis. Blood pressure was on the lower side. For that reason, we switched the patient to Lasix drip. The patient diuresing very well. Physical Examination: Vital Signs: Blood pressure 104/50, pulse of 67. The patient had good urine output of 3100, the patient negative of 18. 100 as weight arce, the patient lost 8 pounds from admission. Chest: Crackles bilateral. Heart: S1, S2, systolic murmur. Abdomen: Soft, nontender. Extremities: +3 edema, but better. Neurologic: Alert. No focality. Laboratory Data: Hemoglobin 10.7. Sodium 132, potassium 3.3, bicarb 43, BUN 40, creatinine 1, GFR of 57, calcium 9.9, phosphorus 3.6, albumin is 3.1, corrected calcium is 10.7. Current Medications: The patient on include: 1. Lasix drip at 10 mg per hour. 2. Aspirin. 3. Diphenhydramine. 4. Lovenox. 5. Atorvastatin. 6. Metoprolol. 7. Spironolactone 25 b.i.d. Assessment And Plan: 1. Acute kidney injury secondary to cardiorenal. The patient is still on the wet side, requiring oxygenation. I am going to go ahead and continue on the current Lasix drip. Continue spironolactone and we will follow up, I think the dose of the Lasix appropriate. As no worsening of her alkalosis for the last few days. Plan hopefully to switch back to full of Lasix hopefully by tomorrow or day after. 2. Hypokalemia. Continue spironolactone. We will supplement. 3. Valvular heart disease with congestive heart failure exacerbation, diastolic dysfunction, over volume. I am going to continue current diuresis. We will utilize blood pressure for more diuresis. 4. Hyponatremia, dilutional. We will optimize the fluid status for the patient. 5. Hypercalcemia. PTH slightly elevated mostly because of immobilization. I am going to go ahead and continue with diuresis. I will go ahead and send for vitamin D and we will follow up. Time spent examining the patient [id number] reviewing data lab and the radiology placing orders or discussing the case with the patient family discussing the case with the state farm agent team member and the hospitalist nursing staff more than 35-minute VINNIE/ANTONIA Voice ID: [id number] Report ID: [id number] MTDD
[2023-09-06 08:24] LABS: Hematocrit 35.3 % (36.0-45.0); MCH 24.7 pg (27.0-35.0); MCHC 31.2 g/dL (32.0-36.0); MCV 79.3 fL (80-100); MPV 9.4 fL (7.6-11.3); Platelets 97 thou/uL (152-406); RBC Red Blood Cell Count 4.45 M/uL (3.86-4.86); Red Cell Distribution Width 22.3 % (12.1-15.2)
[2023-09-06 08:43] LABS: Albumin 3.7 g/dL (3.4-5.0); Anion Gap 4.8 mEq/L (5.0-15.0); Phosphorus 3.4 mg/dL (2.5-4.9); Potassium 3.8 mEq/L (3.5-5.1)
[2023-09-06] MEDS ORDERED: MELATONIN 5 MG TABLET PO PRN (10:32)
--- NOTE | 2023-09-06 12:49 | P.PN ---
Date of Service: 09/06/23 Subjective: Dyspnea has improved Lower extremity slowly improving Feeling better today No acute events overnight Still on NC ROS: 10 point ROS as noted above, otherwise negative Physical exam GEN: AAOx3, NAD, calm and cooperative HEENT: Normal conjunctiva, sclera anicteric CV: RRR, 2+ pitting edema bilateral lower extremities, systolic murmur noted Pulm: Nonlabored respirations on nasal cannula 3 LNC ABD: Soft and benign on palpation, less edema noted, NT/ND, positive bowel sounds MSK: No joint tenderness, 2+ peripheral pulses Integumentary: No rashes, erythema to BLE, skin breakdown to left posterior calf Neuro: Normal speech, normal affect, depressed Vitals reviewed Problem List Acute on chronic diastolic congestive heart failure Acute hypoxic respiratory failure secondary to CHF exacerbation JILLIAN with hyperkalemia Diabetes mellitus type 2 Plan Acute on chronic diastolic congestive heart failure Acute hypoxic respiratory failure secondary to CHF exacerbation Hypercarbia/alkalosis Last echocardiogram 06/20/2023 with left ventricular ejection fraction greater than 65%, mild to moderate aortic valve stenosis Dilated left atrium 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 daily at home, increased to 40 mg for one week without improvement wean O2 if possible, on 3 LNC, dyspnea Still with significant lower extremity edema Echocardiogram performed here showing severe MAC with regurg and stenosis Will likely need valve replacement as an outpatient Strict I and O- UOP acceptable- will Q12h output charted with DAILY weights 1200 ml daily fluid restriction with low sodium diet 2gram Started on lasix drip 09/03, continue through 09/[address] order for home 02 JILLIAN with hyperkalemia Suspect CRS, improving with diuresis Continue to monitor chemistry daily renal ultrasound reports "Mild right hydronephrosis versus extrarenal pelvis. Bladder is decompressed limiting evaluation." nephrology following Diabetes mellitus type 2 ACHS Accu-Check, sliding scale insulin hyperglcemic- more controlled added semglee 15 units HS VTE: Lovenox- restarted Code: Full Dispo: 48-72 hours
--- NOTE | 2023-09-06 21:15 | PN ---
Date of Progress Note: 09/06/2023 Subjective: Seen by bedside, doing slowly better. Review of Systems: No chest pain. Has lower extremity edema. No shortness of breath. No nausea, vomiting, diarrhea. No abdominal pain. No dysuria, polyuria, or urinary urgency. All other systems reviewed are negativ e. Physical Examination: Vital Signs: Reviewed. Head and Neck: Pupils are equal, reactive to light. Intact eye movements. No cervical lymphadenopa thy. Positive JVD. Lungs: Decreased breathing sounds with faint crackles at bases. No accessory muscle use or muscle r etraction. Heart: Regular. No extra sounds. Abdomen: Soft, nontender. Bowel sounds positive. No organomegaly. No masses or hernia. No rigidi ty or rebound. Extremities: No clubbing or cyanosis. Positive edema. Neurologic: Alert, awake, and oriented x3. No acute focal deficits appreciated. Investigations: BUN is 42, creatinine is 1.1. Hemoglobin is 11.0. Assessment/recommendations: 1.Acute on chronic diastolic heart failure exacerbation, on Lasix. We will continue Aldactone, prob ably diuresis over the weekend, and then switch her to oral and then outpatient followup. 2.Mitral valve stenosis with regurgitation. Is appears to be moderate to severe, likely the cause o f her symptoms. We will plan for outpatient mitral valve replacement. Discussed that with her in details. She understands to follow up post discharge. 3.Dyslipidemia. Continue statin. SR/MODL Voice ID: [id number] Report ID: [id number]
[2023-09-06] MEDS: MELATONIN 5 MG TABLET PO PRN (22:05)
--- NOTE | 2023-09-07 03:13 | PN ---
Date of Progress Note: 09/06/2023 Chief Complaint: Acute kidney injury, anasarca secondary to congestive heart failure, failure compli cated by cardiorenal syndrome. The patient is started on aggressive diuretic therapy. The patient w as on Lasix drip. Review of Systems: Denies chest pain, palpitations. Objective: Lungs: Diminished breath sounds at bases. Heart: S1, S2. Abdomen: Soft. Extremities: Edema present. Impression And Plan: 1.Acute kidney injury secondary to cardiorenal syndrome. Continue diuretic, low-sodium diet. Monit or electrolytes closely. Continue spironolactone as needed. Monitor potassium level and magnesium l evel. 2.Hypokalemia. Patient is on spironolactone. Monitor electrolytes and plan treatment for hypokalem ia. 3.Valvular heart disease with congestive heart failure exacerbation, diastolic dysfunction with hype rvolemia. Continue diuretic. Avoid nephrotoxic medication. 4.Hyponatremia, dilutional. Continue low-sodium diet and p.o. fluid restriction along with Bumex. EB/MODL Voice ID: [id number] Report ID: [id number]
[2023-09-07 04:35] LABS: Albumin 3.6 g/dL (3.4-5.0); Anion Gap 8.6 mEq/L (5.0-15.0); Phosphorus 3.5 mg/dL (2.5-4.9); Potassium 3.6 mEq/L (3.5-5.1)
[2023-09-07] MEDS: POTASSIUM CL SA 10 MEQ TAB PO ONE (08:29)
--- NOTE | 2023-09-07 11:49 | P.PN ---
Date of Service: 09/07/23 Subjective: Dyspnea has improved Lower extremity slowly improving Feeling better today No acute events overnight Still on NC-qualified for home 02 ROS: 10 point ROS as noted above, otherwise negative Physical exam GEN: AAOx3, NAD, calm and cooperative HEENT: Normal conjunctiva, sclera anicteric CV: RRR, 2+ pitting edema bilateral lower extremities, systolic murmur noted Pulm: Nonlabored respirations on nasal cannula 3 LNC ABD: Soft and benign on palpation, less edema noted, NT/ND, positive bowel sounds MSK: No joint tenderness, 2+ peripheral pulses Integumentary: No rashes, erythema to BLE, skin breakdown to left posterior calf Neuro: Normal speech, normal affect, depressed Vitals reviewed Problem List Acute on chronic diastolic congestive heart failure Acute hypoxic respiratory failure secondary to CHF exacerbation JILLIAN with hyperkalemia Diabetes mellitus type 2 Plan Acute on chronic diastolic congestive heart failure Acute hypoxic respiratory failure secondary to CHF exacerbation Hypercarbia/alkalosis Last echocardiogram 06/20/2023 with left ventricular ejection fraction greater than 65%, mild to moderate aortic valve stenosis Dilated left atrium 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: Was on Lasix 20mg daily at home, increased to 40 mg for one week without improvement wean O2 if possible, on 3 LNC, dyspnea Still with significant lower extremity edema Echocardiogram performed here showing severe MAC with regurg and stenosis Will likely need valve replacement as an outpatient Strict I and O- UOP acceptable- will Q12h output charted with DAILY weights 1200 ml daily fluid restriction with low sodium diet 2gram Started on lasix drip 09/03, continued through 09/05 Now on 40mg qid Continue diuresis qualified for home 09/05 JILLIAN with hyperkalemia Suspect CRS, improving with diuresis Continue to monitor chemistry daily renal ultrasound reports "Mild right hydronephrosis versus extrarenal pelvis. Bladder is decompressed limiting evaluation." nephrology following Diabetes mellitus type 2 ACHS Accu-Check, sliding scale insulin hyperglcemic- more controlled added semglee 15 units HS VTE: Lovenox- restarted Code: Full Dispo: 48-72 hours
[2023-09-07] MEDS: FUROSEMIDE 40 MG/4 ML VIAL IV SCH (12:03)
--- NOTE | 2023-09-07 20:43 | P.PN ---
Subjective Date of Service: 09/07/23 Chief Complaint: Shortness of breath Subjective: No new changes Physical Examination - Vital Signs Temperature: 98.1 F Blood Pressure: 100/54 Pulse: 82 Respirations: 18 Pulse Ox (%): 93 - Physical Exam General: Other (appears as her stated age) HEENT: Atraumatic, Normocephalic Neck: Supple Respiratory: Other (symmetric chest expansion) Cardiovascular: No rubs, No murmurs Gastrointestinal: Soft and benign, No rebound Musculoskeletal: No clubbing Integumentary: No warmth Neurological: Normal tone Urinary: Other (no bladder distention) External genitalia: Deferred Rectal: Deferred Assessment And Plan - Plan 1. Acute kidney injury 2/2 CRS1. SCr improved to 1.1. Cont lasix. [place] po fluid intake. 2. Anasarca, mostly secondary to cardiorenal, congestive heart failure, diastolic dysfunction, preserved ejection fraction. Cont Lasix. Low Na diet < 2g/d. 3. DM2. Mngt per primary team. 4. Hypertension. Continue current med regimen. 5. Congestive heart failure with diastolic dysfunction with exacerbation. Lasix as above. 6. Hyperkalemia, resolved. Cont lasix. 7. Hyponatremia, mild, monitor.
[2023-09-08] MEDS: TRAMADOL HCL 50 MG TAB PO PRN (00:06)
[2023-09-08 04:04] LABS: Albumin 3.2 g/dL (3.4-5.0); Anion Gap 8.7 mEq/L (5.0-15.0); Phosphorus 3.8 mg/dL (2.5-4.9); Potassium 3.7 mEq/L (3.5-5.1)
--- NOTE | 2023-09-08 08:01 | RAD REPORT ---
[facility] DES[facility] 4:34 am CLINICAL HISTORY: eval pleural effusion/chf COMPARISON: Chest Single View dated 09/04/2023; Chest Single View dated 08/24/2023 TECHNIQUE: Portable AP view of the chest. FINDINGS: Fluffy bibasilar opacities with central interstitial prominence and bilateral effusions la rger on the right. No pneumothorax. The cardiomediastinal contours are unremarkable. IMPRESSION: Findings most suggestive of acute pulmonary edema, progressive since the prior exam.
[2023-09-08] MEDS: POTASSIUM CL SA 10 MEQ TAB PO ONE (08:14)
--- NOTE | 2023-09-08 11:32 | P.PN ---
Date of Service: 09/08/23 Subjective: Dyspnea has improved Lower extremity slowly improving No acute events overnight Still on NC-qualified for home ROS: 10 point ROS as noted above, otherwise negative Physical exam GEN: AAOx3, NAD, calm and cooperative HEENT: Normal conjunctiva, sclera anicteric CV: RRR, 2+ pitting edema bilateral lower extremities, systolic murmur noted Pulm: Nonlabored respirations on nasal cannula 3 LNC ABD: Soft and benign on palpation, less edema noted, NT/ND, positive bowel sounds MSK: No joint tenderness, 2+ peripheral pulses Integumentary: No rashes, erythema to BLE, skin breakdown to left posterior calf Neuro: Normal speech, normal affect, depressed Vitals reviewed Problem List Acute on chronic diastolic congestive heart failure Acute hypoxic respiratory failure secondary to CHF exacerbation JILLIAN with hyperkalemia Diabetes mellitus type 2 Plan Acute on chronic diastolic congestive heart failure Acute hypoxic respiratory failure secondary to CHF exacerbation Hypercarbia/alkalosis Last echocardiogram 06/20/2023 with left ventricular ejection fraction greater than 65%, mild to moderate aortic valve stenosis Dilated left atrium Echocardiogram performed here showing severe MAC with regurg and stenosis Will likely need valve replacement as an outpatient Strict I and O- UOP acceptable- will Q12h output charted with DAILY weights 1200 ml daily fluid restriction with low sodium diet 2gram Started on lasix drip 09/03, continued through 09/05 Lasix 40mg IV QID started 09/06 qualified for home 02 09/05 CXR with some worsening/progression but patient feeling better Continue PT, assess dyspnea on exertion JILLIAN with hyperkalemia Suspect CRS, improving with diuresis Continue to monitor chemistry daily renal ultrasound reports "Mild right hydronephrosis versus extrarenal pelvis. Bladder is decompressed limiting evaluation." nephrology following Diabetes mellitus type 2 ACHS Accu-Check, sliding scale insulin hyperglcemic- more controlled added semglee 15 units HS VTE: Lovenox- restarted Code: Full Dispo: 48-72 hours
--- NOTE | 2023-09-08 16:19 | PN ---
Date of Progress Note: 09/08/2023 Subjective: Seen by bedside, doing clinically well. Does not have any chest pain or shortness of br eath, but she has lower extremity edema. Review of Systems: No chest pain. Has shortness of breath on exertion, lower extremity edema. No nausea, vomiting, christen rrhea. All other systems reviewed are negative. Objective: Vital signs: Reviewed. Head and Neck: Pupils are equal, reactive to light. Intact eye movements. No JVD. No cervical lym phadenopathy. Neck: Supple. Thyroid is not enlarged. Lungs: Clear to auscultation bilaterally. No rhonchi, rales, or crackles. No accessory muscle use. Heart: Regular. No extra sounds. Abdomen: Soft, nontender. Bowel sounds positive. No organomegaly. No masses or hernia. No rigidi ty or rebound. Extremities: Edema 2 to 3+. No clubbing, cyanosis. Intact pulses. Skin: No rash. Neurologic: Alert, awake, oriented x3. No acute focal deficits appreciated. Investigations: BUN is 47, creatinine 1.1, and hemoglobin is 11. Assessment/recommendation: 1.Mnzlr-qc-wczamtl congestive heart failure exacerbation. Ejection fraction is normal. The main pr oblem is her mitral valve. I will recommend to switch her to oral Lasix now. I will put her on 40 m g twice a day and continue Aldactone as she started to have mild intravascular dehydration with incre ased BUN, creatinine, and if she has no significant shortness of breath I will switch her to oral med ication. She can be released and will plan for outpatient mitral valve replacement. If her symptoms worsens after switching her to oral Lasix, then we will plan for in hospital transfer for CT surgery evaluation. 2.Mitral valve disorders, moderate to severe mitral stenosis. It is very hard to diurese very well without causing kidney damage. She will need a mitral valve replaced and I will arrange for it to be done in the near future. 3.Dyslipidemia. Continue statin. SR/MODL Voice ID: [id number] Report ID: [id number]
[2023-09-08] MEDS: FUROSEMIDE 40 MG TABLET PO SCH (16:38)
--- NOTE | 2023-09-08 20:48 | P.PN ---
Subjective Date of Service: 09/08/23 Chief Complaint: Shortness of breath Subjective: No new changes Physical Examination - Vital Signs Temperature: 97.2 F Blood Pressure: 105/50 Pulse: 76 Respirations: 17 Pulse Ox (%): 96 - Physical Exam General: Other (appears as her stated age) HEENT: Atraumatic, Normocephalic Neck: Supple Respiratory: Other (symmetric chest expansion) Cardiovascular: No rubs, No murmurs Gastrointestinal: Soft and benign Musculoskeletal: Swelling Integumentary: No warmth Neurological: Normal speech, Normal tone Urinary: Other (no bladder distention) External genitalia: Deferred Rectal: Deferred Assessment And Plan - Plan 1. Acute kidney injury 2/2 CRS1. SCr improved to 1.1. Cont lasix. [place] po fluid intake at least 2L/day. 2. Anasarca, mostly secondary to cardiorenal, congestive heart failure, diastolic dysfunction, preserved ejection fraction. Cont Lasix. Low Na diet < 2g/d. 3. DM2. Mngt per primary team. 4. Hypertension. Continue current med regimen. 5. Congestive heart failure with diastolic dysfunction with exacerbation. Lasix as above. 6. Hyperkalemia, resolved. Cont lasix. 7. Hyponatremia, mild, monitor.
[2023-09-09 08:02] LABS: Albumin 3.2 g/dL (3.4-5.0); Anion Gap 9.5 mEq/L (5.0-15.0); Phosphorus 3.4 mg/dL (2.5-4.9); Potassium 4.5 mEq/L (3.5-5.1)
--- NOTE | 2023-09-09 12:52 | P.PN ---
Date of Service: 09/09/23 Subjective: Dyspnea has improved Lower extremity slowly improving-still with significant edema No acute events overnight Still on NC 3-4 LPM-qualified for home ROS: 10 point ROS as noted above, otherwise negative Physical exam GEN: AAOx3, NAD, calm and cooperative HEENT: Normal conjunctiva, sclera anicteric CV: RRR, 2+ pitting edema bilateral lower extremities, systolic murmur noted Pulm: Nonlabored respirations on nasal cannula 3 LNC ABD: Soft and benign on palpation, less edema noted, NT/ND, positive bowel sounds MSK: No joint tenderness, 2+ peripheral pulses Integumentary: No rashes, erythema to BLE, skin breakdown to left posterior calf Neuro: Normal speech, normal affect, depressed Vitals reviewed Problem List Acute on chronic diastolic congestive heart failure Acute hypoxic respiratory failure secondary to CHF exacerbation JILLIAN with hyperkalemia Diabetes mellitus type 2 Plan Acute on chronic diastolic congestive heart failure Acute hypoxic respiratory failure secondary to CHF exacerbation Hypercarbia/alkalosis Last echocardiogram 06/20/2023 with left ventricular ejection fraction greater than 65%, mild to moderate aortic valve stenosis Dilated left atrium Echocardiogram performed here showing severe MAC with regurg and stenosis Will likely need valve replacement as an outpatient Strict I and O- UOP acceptable- will Q12h output charted with DAILY weights 1200 ml daily fluid restriction with low sodium diet 2gram Started on lasix drip 09/03, continued through 09/05 Lasix 40mg IV QID started 09/06, placed on oral lasix 09/07 evening Trial oral lasix, if stable can possibly DC tomorrow with home /oral lasix and follow up with cardiology for Mitral valve evaluation/surgery If worsening or intolerant of oral lasix dose may require transfer for further inpatient care related to mitral valve/chf qualified for home 02 09/05 CXR with some worsening/progression but patient feeling a little better Continue PT, assess dyspnea on exertion JILLIAN with hyperkalemia Suspect CRS, improving with diuresis Continue to monitor chemistry daily renal ultrasound reports "Mild right hydronephrosis versus extrarenal pelvis. Bladder is decompressed limiting evaluation." nephrology following Diabetes mellitus type 2 ACHS Accu-Check, sliding scale insulin hyperglcemic- more controlled added semglee 15 units HS VTE: Lovenox- restarted Code: Full Dispo: 48-72 hours <Ghulam Kohler - Last Filed: 09/09/23 12:46> Patient seen and examined on rounds this morning with INSIDE SALES ENGINEER Jose F. Agree with plan of care as noted above with the following additions / corrections: echo done this admisison: severe mitral annular calcification with mitral stenosis and mitral regurgitation. moderate diastolic dysfunction no worsening symptoms PO lasix started yesterday will see over next 1-2 days if doing ok on PO lasix and can potentially go home while awaiting scheduling of mitral valve replacement vs transfer inpatient <Shen Keating - Last Filed: 09/09/23 22:45>
--- NOTE | 2023-09-09 21:23 | PN ---
Date of Progress Note: 09/09/2023 Subjective: Seen by the bedside. Continues to have significant lower extremity edema, shortness of breath on minimal exertion and despite being on aggressive Lasix. Review of Systems: No chest pain. Positive shortness of breath. No nausea, vomiting, diarrhea. No abdominal pain. No dysuria, polyuria, urinary urgency. Has lower extremity edema. All other systems reviewed are nega tive. Objective: Vital signs: Reviewed. Head and Neck: Pupils are equal, reactive to light. Intact eye movements. No cervical lymphadenopa thy. Neck is supple. Thyroid is not enlarged. Lungs: Decreased breathing sounds bilaterally. No accessory muscle use. No muscle retraction. Heart: Regular. No extra sounds. Abdomen: Soft, nontender. Bowel sounds positive. No organomegaly. No masses or hernia. No rigidi ty or rebound. Extremities: No clubbing, cyanosis. Positive edema, 3 to 4+. Neurologic: Alert, awake, oriented x3. No acute focal deficits appreciated. Investigations: Labs reviewed. Assessment/recommendation: 1.Acute on chronic diastolic heart failure exacerbation. She is switched appropriately to oral Lasi x twice a day and continue current therapy, but we are not able to get her to feel well in terms of h er respiratory status. I would recommend transfer to higher level of care facility to be evaluated b y CT surgeon to evaluate mitral valve. 2.Mitral valve disorder with stenosis mainly. Recommend evaluation by CT Surgery since they are hav ing difficulty diuresing her. Recommend transfer to higher level of care facility to be evaluated as an inpatient for possible mitral valve replacement. 3.Dyslipidemia. Continue statin. Cardiology will sign off. SR/MODL Voice ID: [id number] Report ID: [id number]
--- NOTE | 2023-09-10 01:59 | PN ---
Date of Progress Note: 09/09/2023 Chief Complaint: Acute on chronic kidney injury, cardiorenal syndrome. Patient presented to the [facility] because of shortness of breath. She has anasarca. She has been treated with IV Lasix. She long s history of congestive heart failure with diastolic dysfunction, preserved fraction. Review of Systems: She denies chest pain, palpitation. She has generalized weakness. Leg edema has improved, although she still has persistent edema in both legs. Physical Examination: Vital Signs: Blood pressure 105/50, heart rate 76, respiratory rate 17, SpO2 96%. HEENT: Atraumatic, normocephalic. Neck: Supple. Respiratory: Equal chest expansion. Cardiovascular: No rubs, murmur. Abdomen: Soft, benign, nontender. Extremities: Edema 1+ in both legs. Impression And Plan: 1.Acute kidney injury secondary to cardiorenal syndrome. Serum creatinine improved to baseline and renal function is plateauing, but has high BUN/creatinine ratio secondary to cardiorenal syndrome and diuretic effect. Patient has prerenal azotemia. Lasix dose was reduced. Continue to monitor fluid balance. 2.Anasarca. Due to cardiorenal syndrome, congestive heart failure with diastolic dysfunction and pa tient has preserved ejection fraction, continue Lasix and low-sodium diet. Sodium intake less than 2 g per day. 3.Diabetes mellitus. Continue insulin. 4.Hypertension. Continue current blood pressure medication. 5.Congestive heart failure with diastolic dysfunction and exacerbation. Lasix dose was adjusted. 6.Hyperkalemia, resolved. Continue Lasix. Monitor magnesium and renal panel. 7.Hyponatremia, mild in setting of fluid overload and cardiorenal syndrome. Continue Lasix. EB/MODL Voice ID: [id number] Report ID: [id number]
[2023-09-10] MEDS ORDERED: LEVALBUTEROL 0.63 MG/3 ML NEB NEB PRN (07:30)
[2023-09-10 07:47] LABS: Albumin 3.2 g/dL (3.4-5.0); Anion Gap 5.2 mEq/L (5.0-15.0); Phosphorus 3.8 mg/dL (2.5-4.9); Potassium 4.2 mEq/L (3.5-5.1)
--- NOTE | 2023-09-10 12:21 | P.PN ---
Subjective Date of Service: 09/10/23 Chief Complaint: Shortness of breath Subjective Pt with HX of CHF, , admitted for SOB and LE edema Physical exam General: Awake, NAD , obese HEENT: Atraumatic, Normocephalic Neck: Supple, no elevated JVD Respiratory: CTAB Cardiovascular: No rubs, No murmurs Gastrointestinal: Soft and benign, Non-distended, garg Musculoskeletal: No clubbing Ext; +1 edema A/P #. Acute kidney injury 2/2 CRS1. SCr improved to 1.1. Cont lasix. consider to remove garg tomorrow #. Anasarca, l, congestive heart failure, diastolic dysfunction, preserved ejection fraction. Cont Lasix. Low Na diet < 2g/d. #. DM2. Mngt per primary team. #. Hypertension. Continue current med regimen. #. Congestive heart failure with diastolic dysfunction with exacerbation. Lasix as above. #. Hyperkalemia, resolved. Cont lasix. #. Hyponatremia, mild, monitor. # Aortic stenosis;plan for possible transfer for higher level of care Physical Examination - Vital Signs Temperature: 97.0 F Blood Pressure: 112/54 Pulse: 68 Respirations: 16 Pulse Ox (%): 96
[2023-09-10 12:52] LABS: 1,25 Dihydroxy Vitamin D3 10 pg/mL; Vitamin D 1,25-Dihydroxy Total 10 pg/mL (18-72); Vitamin D,1,25-OH2, D2 <8 pg/mL
--- NOTE | 2023-09-10 15:34 | P.PN ---
Date of Service: 09/10/23 Subjective: Awake and sitting in bedside chair conversing well 3+ edema to BLE, little improvement Requesting transfer to [facility] with Dr. Norris ROS: 10 point ROS as noted above, otherwise negative Physical exam GEN: Alert and oriented x3, No acute distress, calm and cooperative HEENT: Normal conjunctiva, sclera anicteric CV: Regular rate and rhythm, 2+ pitting edema bilateral lower extremities, systolic murmur noted Pulm: Nonlabored respirations on nasal cannula 2 LNC ABD: positive bowel sounds, Soft and benign on palpation, NT/ND, less edema noted MSK: No joint tenderness, 2+ peripheral pulses Integumentary: No rashes, erythema to BLE, skin breakdown to left posterior calf Neuro: Normal speech, normal affect, depressed Vitals reviewed Problem List Acute on chronic diastolic congestive heart failure Acute hypoxic respiratory failure secondary to CHF exacerbation JILLIAN with hyperkalemia Diabetes mellitus type 2 Plan Acute on chronic diastolic congestive heart failure Acute hypoxic respiratory failure secondary to CHF exacerbation Hypercarbia/alkalosis Last echocardiogram 06/20/2023 with left ventricular ejection fraction greater than 65%, mild to moderate aortic valve stenosis Dilated left atrium Echocardiogram performed here showing severe MAC with regurg and stenosis Will likely need valve replacement as an outpatient Strict I and O- UOP acceptable- will Q12h output charted with DAILY weights 1200 ml daily fluid restriction with low sodium diet 2gram Started on lasix drip 09/03, continued through 09/05 Lasix 40mg IV QID started 09/06, placed on oral lasix 09/07 evening Trial oral lasix attempting transfer to [facility] to see Dr. Norris qualified for home oxygen (09/05) CXR with some worsening/progression but patient feeling a little better Continue PT, assess dyspnea on exertion JILLIAN with hyperkalemia Suspect CRS, improving with diuresis Continue to monitor chemistry daily renal ultrasound reports "Mild right hydronephrosis versus extrarenal pelvis. Bladder is decompressed limiting evaluation." nephrology following Diabetes mellitus type 2 ACHS Accu-Check, sliding scale insulin hyperglcemia- more controlled Continue semglee 15 units HS VTE: Lovenox- restarted Code: Full Dispo: 48-72 hours
[2023-09-11 07:30] LABS: Albumin/Globulin Ratio 0.7 (1.1-1.8); Anion Gap 9.3 mEq/L (5.0-15.0); Bilirubin Total 0.8 mg/dL (0.2-1.0); Globulin 4.2 g/dL (2.3-3.5); Potassium 4.3 mEq/L (3.5-5.1); Protein, Total 7.2 g/dL (6.4-8.2)
[2023-09-11] MEDS: FUROSEMIDE 40 MG TABLET PO SCH (11:13)
--- NOTE | 2023-09-11 11:32 | PN ---
Date of Progress Note: 09/11/2023 Subjective: The patient was admitted with acute kidney injury secondary to cardiorenal anasarca. The patient has been diuresed very well. The patient still has significant edema. The patient been negative balance all over. The patient lost almost 11 pounds from admission, gained in the last couple of days. Physical Examination: Vital Signs: Blood pressure 100/50, pulse of 68. The patient had urine output of 1800. Chest: Crackles bilateral. Heart: S1-S2, systolic murmur. Abdomen: Soft, nontender. Extremities: +2 edema. Laboratory Data: Chest x-ray, congestion bilaterally. WBC 11.7, hemoglobin 11. Sodium 131, potassium 4.3 bicarb 37, BUN 41, creatinine 1, GFR 62, calcium 9.1. Current Medications: The patient is on include diphenhydramine, aspirin, Lovenox, atorvastatin, metoprolol 25, spironolactone 25 b.i.d., Lasix 40 b.i.d., Zofran, insulin, melatonin. Assessment And Plan: 1. Acute kidney injury secondary to cardiorenal. The patient will continue to be on the over volume side. I am going to go ahead and increase the Lasix to every 6 hours to maintain better volume control. 2. Hypertension, controlled currently on the lower side. We will continue to utilize blood pressure for more diuresis. 3. Congestive heart failure with exacerbation as above. We will optimize the fluid status. 4. Hyperkalemia, currently normalized. Continue spironolactone. 5. Hypokalemia, resolved. Continue spironolactone. 6. Hyponatremia, dilutional. We will optimize the fluid status for increased Lasix. 7. Congestive heart failure, valvular heart disease, waiting for transfer. We will continue to optimize the fluid status. Time spent examining the patient [id number] reviewing data lab and the radiology placing orders or discussing the case with the patient family discussing the case with the seo team lead and the hospitalist nursing staff more than 35-minute NATHALY Voice ID: [id number] Report ID: [id number] LISA
--- NOTE | 2023-09-11 15:29 | P.PN ---
Date of Service: 09/11/23 Subjective: Continues to feel better. Sitting in bedside chair. Catina is being very patient and cooperative with the diuresis process. She reports elevating her legs most of the day. NAEON ROS: 10 point ROS as noted above, otherwise negative Physical exam GEN: AAO x3, calm and cooperative, No acute distress HEENT: Normal conjunctiva, sclera anicteric CV: RRR, 2+ pitting edema bilateral lower extremities, systolic murmur noted Pulm: Nonlabored respirations on nasal cannula 3 LNC, ABD: Soft and benign on palpation, NT/ND, positive bowel sounds MSK: No joint tenderness, 2+ peripheral pulses Integumentary: No rashes, erythema to BLE, skin breakdown to left posterior calf Neuro: Normal speech, normal affect Vitals reviewed Problem List Acute on chronic diastolic congestive heart failure Acute hypoxic respiratory failure secondary to CHF exacerbation JILLIAN with hyperkalemia Diabetes mellitus type 2 Plan Acute on chronic diastolic congestive heart failure Acute hypoxic respiratory failure secondary to CHF exacerbation Hypercarbia/alkalosis Last echocardiogram 06/20/2023 with left ventricular ejection fraction greater than 65%, mild to moderate aortic valve stenosis Dilated left atrium Echocardiogram performed here showing severe MAC with regurg and stenosis Will likely need valve replacement as an outpatient Strict I and O- UOP 1570 (09/09)- will need Q12h output charted with DAILY weights 1200 ml daily fluid restriction with low sodium diet 2gram Started on lasix drip 09/03, continued through 09/05 Lasix 40mg IV QID started 09/06, placed on oral lasix 09/07 evening Trial oral lasix Q6hr- Per nephrology attempting transfer to [facility] to see Dr. Norris qualified for home oxygen (09/05) CXR with some worsening/progression but patient feeling a little better Continue PT, continues to desaturation with activity to 88% on 3LNC JILLIAN with hyperkalemia Hyponatremia likely dilusional Hyperkalemia resolved Suspect CRS, improving with diuresis Continue to monitor chemistry daily renal ultrasound reports "Mild right hydronephrosis versus extrarenal pelvis. Bladder is decompressed limiting evaluation." nephrology following Diabetes mellitus type 2 ACHS Accu-Check, sliding scale insulin hyperglcemia- BS <170 so far today (09/10) Continue semglee 15 units HS VTE: Lovenox- restarted Code: Full Dispo: 48-72 hours
[2023-09-12 10:35] LABS: Absolute Basophils 0.1 K/uL (0-0.5); Absolute Eosinophils 0.3 K/uL (0-0.5); Absolute Lymphocytes (CBC) 1.9 K/uL (0.7-4.9); Absolute Monocytes 0.9 K/uL (0.1-1.3); Absolute Neutrophil 7.7 K/uL (1.8-8.0); Basophils % 0.9 % (0-1.3); Eosinophils % 2.6 % (0-4.4); Hematocrit 36.5 % (36.0-45.0); Hemoglobin 11.5 g/dL (12.0-15.0); Lymphocytes % 17.2 % (15.3-44.8); MCH 25.1 pg (27.0-35.0); MCHC 31.4 g/dL (32.0-36.0); MPV 9.4 fL (7.6-11.3); Monocytes % 8.3 % (3.3-12.3); Nucleated Red Blood Cells % 0.1 % (0-0); Platelets 165 thou/uL (152-406); RBC Red Blood Cell Count 4.57 M/uL (3.86-4.86); Red Cell Distribution Width 22.5 % (12.1-15.2)
[2023-09-12 10:47] LABS: Anion Gap 8.6 mEq/L (5.0-15.0); Phosphorus 5.2 mg/dL (2.5-4.9); Potassium 4.6 mEq/L (3.5-5.1)
[2023-09-12 11:28] VITALS: BP 105/53
--- NOTE | 2023-09-12 11:40 | P.DS ---
Admission Date: 08/25/23 Discharge Date: 09/14/23 Disposition: TRANSFER TO [facility] Discharge Condition: FAIR Reason for Admission: Shortness of breath Brief History of Present Illness: Diagnosis Acute on chronic diastolic congestive heart failure Acute hypoxic respiratory failure secondary to CHF exacerbation JILLIAN with hyperkalemia Diabetes mellitus type 2 HPI 08/25/23 Catina Antony is a 63-year-old woman with a history of diabetes mellitus on metformin, recent right hip fracture with decreased mobility presented to the emergency department with a complaint of progressive shortness of breath and eric ateral lower extremity swelling. Patient mentioned her PCP put her on Lasix after she was discharged from skilled rehab which she underwent postop for the hip fracture. She states that her Lasix dose was tapered down from 40 mg to 20 mg and her PCP recently instructed her to increase the dose to 40 mg due to progressive lower extremity swelling. Chest x-ray done in the emergency department shows bilateral pulmonary edema, patient's legs are significantly swollen up to the point she developed blisters on sores from the edema. Blood work shows hyperkalemia with potassium of 5.3. Of note patient has been taking potassium supplementation with her Lasix therapy. EKG does not show any acute ischemic changes, initial troponin is negative. Patient is hospitalized for further management. Hospital Course: Catina Antony is a pleasant 63 year old female with a past medical history significant for diabetes mellitus on metformin, recent right hip fracture with d ecreased mobility, CHF who was admitted to the [facility] on 08/25/23 for [text]. Catina presented to the ED with chief complaint of SOB and Lower extremity edema. She had recently had a hip replacement which required further physical therapy. After discharge from SNF she was prescribed lasix for the lower extremity edema. Her PCP was making adjustments to the lasix when she was found to require larger doses without relief to the edema. During this admission, the ECHO revealed severe MAC with mitral stenosis and regurgitation which is the cause of her retained fluid. She has tolerated continued diuresis but was unable to reach a euvolemic state. Nephrology and cardiology were extensively involved with great efforts made to diurese safely. After a lenghty hospitalization, Cardiology recommended transfer to a facility that can monitor her diuresis and provide open heart surgery when achieved. [facility] has accepted transfer. Catina was transferred to a higher level of care. Catina has tolerated PO diet, supplemental oxygen, and is hemodynamically stable for transfer. On 09/11/23, Catina was seen on morning rounds and deemed medically stable for transfer to [facility] for further treatment which may include a mitral valve replacement. The patient and family members were given the opportunity to ask questions and reported no further questions. Furthermore, all questions were answered to the best of my ability. A copy of this discharge summary will be sent to the above providers to facilitate continuity of care. Today, I personally spent 50 minutes with Catina, of which greater than 50% of the time was spent in patient education, counseling, and coordination of care as described above. Physical exam GEN: NAD, alert and oriented x3, calm and cooperative HEENT: Normal conjunctiva, sclera anicteric CV: S1S2 present, RRR, 3+ pitting edema bilateral lower extremities, systolic murmur noted Pulm: Nonlabored respirations on nasal cannula 3 LNC, symmetrical chest wall movement ABD: Soft and benign on palpation, Non tender, positive bowel sounds MSK: No joint tenderness, 2+ peripheral pulses Integumentary: No rashes, erythema to BLE, skin breakdown to left posterior calf Neuro: Normal speech, normal affect Vital Signs/Physical Exam: Temp Pulse Resp BP Pulse Ox 98.4 F 84 16 105/53 L 100 09/12/23 08:00 09/12/23 11:18 09/12/23 08:00 09/12/23 11:18 09/12/23 08:00 Laboratory Data at Discharge: WBC 10.80 thou/uL (4.3-10.9) 09/12/23 10:23 Hgb 11.5 g/dL (12.0-15.0) L 09/12/23 10:23 Hct 36.5 % (36.0-45.0) 09/12/23 10:23 Plt Count 165 thou/uL (152-406) 09/12/23 10:23 PT 12.4 SECONDS (9.5-12.5) 08/24/23 21:15 INR 1.13 08/24/23 21:15 Sodium 131 mEq/L (136-145) L 09/12/23 10:23 Potassium 4.6 mEq/L (3.5-5.1) 09/12/23 10:23 BUN 44 mg/dL (7-18) H 09/12/23 10:23 Creatinine 1.30 mg/dL (0.55-1.02) H 09/12/23 10:23 Glucose 189 mg/dL (74-106) H 09/12/23 10:23 Phosphorus 5.2 mg/dL (2.5-4.9) H 09/12/23 10:23 Magnesium 2.0 mg/dL (1.6-2.4) 09/12/23 10:23 Total Bilirubin 0.8 mg/dL (0.2-1.0) 09/11/23 07:01 AST 11 U/L (15-37) L 09/11/23 07:01 ALT 15 U/L (13-56) 09/11/23 07:01 Alkaline Phosphatase 106 U/L (45-117) 09/11/23 07:01 Triglycerides 70 mg/dL (<150) 08/26/23 03:32 Cholesterol 80 mg/dL (<200) 08/26/23 03:32 HDL Cholesterol 39 mg/dL (40-60) L 08/26/23 03:32 Cholesterol/HDL Ratio 2.05 08/26/23 03:32 Home Medications: Aspirin [Aspirin EC] 81 mg PO DAILY 08/25/23 Atorvastatin Calcium 10 mg PO BEDTIME 08/25/23 Dulaglutide [Trulicity] 1.5 mg SQ SEECOM 08/25/23 Furosemide [Lasix] 40 mg PO DAILY 08/25/23 Metformin HCl 1 tab PO BID 08/25/23 Potassium Chloride 40 meq PO BID 08/25/23 Physician Discharge Instructions: [facility] Home Health P:[phone] F:[phone] Home Oxygen arrangements: [facility] [id number], [place] [address] Followup: CHARISSA CARRNIGTON [UNKNOWN] - Marcos Hernandez MD [ACTIVE - CAN ADMIT] - Time spent managing pt's care (in minutes): 50
[2023-09-12 11:56] VITALS: TEMP 97.9
[2023-09-12 12:25] VITALS: O2SAT 94
--- NOTE | 2023-09-12 12:28 | PN ---
Date of Progress Note: 09/12/2023 Subjective: The patient was admitted to the hospital with acute kidney injury, anasarca, cardiorenal. The patient was started on diuresis. The patient responded very well. Kidney function normalized. Physical Examination: Vital Signs: Blood pressure 105/53, pulse of 84. Chest: Decreased entry bilateral base. Heart: S1, S2. Regular. Abdomen: Soft, nontender. Extremities: +3 edema, but better. Neuro: Alert. No focality. Laboratory Data: Hemoglobin 11.5. Sodium 131, potassium 4.6, bicarb 37, BUN 44, creatinine 1.3, calcium 9.9. Phosphorus 5.2, magnesium 2. Current Medications: The patient is on include albuterol, aspirin, diphenhydramine, Lovenox, metoprolol spironolactone 25 b.i.d., Lasix 40 q.6 hours, melatonin, tramadol. Assessment And Plan: 1. Acute kidney injury secondary to cardiorenal, recover, still overvolume. I am going to continue current diuresis. The patient is cleared from the Renal standpoint. Waiting for the transfer for valve replacement. 2. Hypertension, controlled, optimal. Continue to utilize blood pressure for more diuresis. 3. Congestive heart failure with exacerbation as above. Continue current dose of Lasix. 4. Hyperkalemia, resolved. Currently, on spironolactone. 5. Hypokalemia, resolved. Continue spironolactone. 6. Hyponatremia, dilutional. Continue to optimize diuresis. 7. Congestive heart failure with exacerbation with valvular heart disease. Plan for valve surgery. We will follow up. Time spent examining the patient [id number] reviewing data lab and the radiology placing orders or discussing the case with the patient family discussing the case with the steam plant control room operator and the hospitalist nursing staff more than 35-minute VINNIE/ANTONIA Voice ID: [id number] Report ID: [id number] LISA
[2023-09-12 13:16] LABS: Anisocytosis 1+; Blood Morphology Comment NOTED (NOT SEEN); Platelet Estimate ADEQ; White Blood Cell Scan OK (OK)
== END 2023-09-12 12:56 | disposition short-term general hospital (02) | DRG 291 ==
LOC: ER 20:21 → 2ND 08-25 01:24 → 4TH 08-29 13:57
PROVIDERS: ADMIT Internal Medicine; ATTEND Internal Medicine
PROC: 5A09357 Assistance with Respiratory Ventilation, Less than 24 Consecutive Hours, Continuous Positive Airway Pressure (ICD-10-PCS; principal; 2023-08-25)
PROC: 4A033R1 Measurement of Arterial Saturation, Peripheral, Percutaneous Approach (ICD-10-PCS; 2023-08-25)
DX: I11.0 Hypertensive heart disease with heart failure (principal); I50.33 Acute on chronic diastolic (congestive) heart failure; J96.01 Acute respiratory failure with hypoxia; J96.02 Acute respiratory failure with hypercapnia; N17.9 Acute kidney failure, unspecified; E87.1 Hypo-osmolality and hyponatremia; E87.3 Alkalosis; E11.65 Type 2 diabetes mellitus with hyperglycemia; E11.40 Type 2 diabetes mellitus with diabetic neuropathy, unspecified; D64.9 Anemia, unspecified; E83.52 Hypercalcemia; E87.6 Hypokalemia; E87.5 Hyperkalemia; E78.5 Hyperlipidemia, unspecified; F32.A Depression, unspecified; I08.0 Rheumatic disorders of both mitral and aortic valves; R04.0 Epistaxis; Z11.52 Encounter for screening for COVID-19; Z79.84 Long term (current) use of oral hypoglycemic drugs; Z79.82 Long term (current) use of aspirin; Z87.891 Personal history of nicotine dependence; Z79.899 Other long term (current) drug therapy
CPT/HCPCS: 36415; 51702; 71045; 76770; 80048; 80053; 80061; 80069; 80076; 81001; 82306; 82570; 82652; 82805; 82947; 83605; 83735; 83880; 83970; 84100; 84156; 84443; 84484; 85025; 85027; 85610; 87040; 87635; 87804; 93005; 93306; 93970; 94640; 94660; 94760; 96374; 96375; 97110; 97116; 97161; 97530; 97542; 99285; J0696; J1650; J1815; J1940; J3475; J7050; J7613; J7644; P9047